=== PATIENT | female | born 1945 | race Caucasian/White ===

== ENCOUNTER 2017-06-03 08:00 | Outpatient (CLI) | payer MEDICARE, OTHER | END 2017-06-03 08:01 | disposition home or self-care (01) | LOC: BICMRI 08:00 | PROVIDERS: ATTEND Orthopaedic Surgery Hand Surgery | DX: M25.512 Pain in left shoulder (principal); M67.80 Other specified disorders of synovium and tendon, unspecified site; T14.8XXA Other injury of unspecified body region, initial encounter; S43.439A Superior glenoid labrum lesion of unspecified shoulder, initial encounter ==

== ENCOUNTER 2017-06-28 10:39 | Outpatient (CLI) | payer MEDICARE ==
[2017-06-28 11:24] LABS: Hemoglobin 15.6 g/dL (12.0-16.0); Mean Corpuscular HGB CONC 33.2 g/dL (32.0-36.0); Mean Corpuscular Hemoglobin 29.6 pg (27.0-31.0); Mean Corpuscular Volume 89.1 fl (81.0-99.0); Mean Platelet Volume 7.4 fL (7.4-10.4); Platelet Count 254 thou/uL (130-400); RBC Distribution Width 11.9 % (11.5-14.5); Red Blood Cell (RBC) Count 5.26 mill/uL (4.20-5.40); White Blood Cell (WBC) Count 6.7 thou/uL (4.8-10.8)
[2017-06-28 11:43] LABS: Anion Gap 14 mmol/L (10-20); BUN (Urea Nitrogen) 13 mg/dL (9.8-20.1); Calc. Creatinine Clearance 0 mL/min (70-130); Calcium 9.4 mg/dL (7.8-10.44); Carbon Dioxide 26 mmol/L (23-31); Chloride 103 mmol/L (98-107); Estimated GFR-MDRD 48; Glucose 106 mg/dL (83-110); Potassium 4.2 mmol/L (3.5-5.1); Sodium 139 mmol/L (136-145)
== END 2017-06-28 10:40 | disposition home or self-care (01) ==
LOC: LABBT 10:39
PROVIDERS: ATTEND Orthopaedic Surgery
DX: Z01.812 Encounter for preprocedural laboratory examination (principal); M75.102 Unspecified rotator cuff tear or rupture of left shoulder, not specified as traumatic
CPT/HCPCS: 80048; 85027

== ENCOUNTER → 2017-06-30 | Day surgery (SDC) | payer MEDICARE, OTHER ==
[2017-06-28 11:01] VITALS: BMI 44.0
[~2017-06-30] MED LIST: CEFAZOLIN/Water 2 GM/20 ML SYRINGE ONE; Fentanyl 100 MCG/2 ML VIAL ONE; Midazolam HCl 2 mg/2 ml Vial ONE; Ropivacaine 0.2% HCl/PF (40 MG/20 ML VIAL) ONE; Ropivacaine 0.5% HCl/PF (150 MG/30 ML VIAL) ONE
[2017-06-30 06:27] LABS: Bilirubin Negative (Negative); Blood, Urine Negative (Negative); Clarity CLEAR (Clear); Glucose, Urine (Dipstick) Negative (Negative); Leukocyte Negative (Negative); Nitrite Negative (Negative); Protein, Urine (Dipstick) Negative (Neg-Trace); Specific Gravity, Urine 1.016 (1.002-1.036); Urobilinogen 0.2 mg/dL (0.2-1.0)
--- NOTE | 2017-06-30 17:05 | CON ---
DATE OF CONSULTATION: 06/30/2017 HISTORY OF PRESENT ILLNESS: Mrs. Willson is a pleasant 71-year-old female, who was brought to outpatient surgery for subscapularis repair. The patient was taken back to the operating room and was given propofol and began a generalized induction for endotracheal intubation. The patient went from sinus rhythm to atrial fibrillation and atrial flutter. She has a known history of a paroxysmal atrial fibrillation and was cleared for surgery by Cardiology. Anesthesia with Dr. Robles the attending felt that the patient had concern for continuation of general induction. Given the cardiac rhythm changes, we would like further evaluation by Cardiology given the nature of procedure. We elected to not proceed with the patient's complete general induction. The patient was woken up and has had EKG changes that were taken showing her different rhythm strips. The patient will need to follow up with me as an outpatient. Dr. Dodson will evaluate the patient in the PACU and discussed with the family and patient should need an outpatient follow up with possible ablation versus pacing. They will follow up with me as an outpatient. Also, she has got a block with her sling in place. The patient will be given some tramadol for pain relief. AUUTMN
--- NOTE | 2017-06-30 18:34 | CON ---
DATE OF CONSULTATION: 06/30/2017 REASON FOR CONSULTATION: Atrial fibrillation. PRIMARY CERTIFIED FIRST ASSISTANT: Miguel Moreno M.D. HISTORY OF PRESENT ILLNESS: Mrs. Willson is a very pleasant 71-year-old white female, who comes to the hospital for a planned left open subscapularis repair. She has a rotator cuff injury that needs repa ir. She had her block placed on her shoulder and was getting induced by Anesthesia and she went from sinus rhythm to rapid atrial fibrillation, heart rate in the 140s, then she converted back to sinus, and then she went back into atrial flutter with 2:1 block, heart rate in the 150s and then she came back to sinus rhythm. Secondary to this, the procedure was aborted. She had only receives a few dos es of propofol at that time, so she was taken back to the PACU and Cardiology was consulted for furth er evaluation. She tells me that she has been dealing with this shoulder since March of last year and is at the point where she needs a repair as she cannot even sleep due to the pain. She has a hi story of paroxysmal atrial fibrillation. She is chronically on Eliquis and Multaq. She stopped Eliq uis 3 days before surgery, which was appropriate. She did continue the Multaq, her last dose was the night before the procedure. She otherwise currently denies any chest pain, tightness, or pressure. No shortness of breath. She cannot do much because of her shoulder injury. Currently, she remains in sinus rhythm. PAST MEDICAL HISTORY: 1. Hypothyroidism. 2. Hyperlipidemia. 3. Paroxysmal atrial fibrillation. OUTPATIENT MEDICATIONS: Include: 1. Magnesium. 2. Potassium. 3. Vitamin B12. 4. Glucosamine/chondroitin. 5. Multivitamin daily. 6. Turmeric root extract. 7. Levothyroxine 100 mcg a day. 8. Multaq 400 mg b.i.d. 9. Eliquis 5 mg b.i.d. ALLERGIES: No known drug allergies. SOCIAL HISTORY: No alcohol, tobacco or drugs. FAMILY HISTORY: Noncontributory. REVIEW OF SYSTEMS: A 12-point review of systems was done and is all negative unless stated in the hi story of present illness. PHYSICAL EXAMINATION: VITAL SIGNS: Temperature 97.2, pulse 60, respiratory rate 18, satting 98% on room air. GENERAL: Awake, alert, oriented x3, in no distress. HEENT: Normocephalic and atraumatic. NECK: Supple. LUNGS: Clear. CARDIOVASCULAR: S1, S2, no S3, S4, no murmurs, no rubs. ABDOMEN: Soft, positive bowel sounds. EXTREMITIES: No edema. SKIN: Warm and dry. LABORATORY WORK: Reviewed. On 06/28/2017, her creatinine was 1.12 with a GFR of 72. Sodium of 139, potassium of 4.2, chloride o f 103, carbon dioxide of 26, anion gap of 14, BUN of 13, and calcium of 9.4. CBC on the showed hemoglobin of 15.6 with normal white count, platelet count of 254. EKGs were reviewed. Several EKGs in the OR showed episode of atrial fibrillation with RVR and then s inus rhythm and then atrial flutter, it looks like typical atrial flutter with variable block, heart rate in the 140s to 150s and then sinus rhythm again, currently on telemetry in sinus rhythm. ASSESSMENT AND PLAN: Paroxysmal atrial fibrillation/atrial flutter: Certainly, unlikely that dillon g a dose of Multaq will make her go into atrial fibrillation or atrial flutter and this could just be her paroxysms of atrial fibrillation. It could also just be the stress related to the surgery; jake vázquez, she has not had a stress in several years, last one was I think in 2011. We will plan on doing an outpatient stress test and if this is unremarkable which I expected to be, we will most likely sug gest she may undergo surgery. Otherwise, at this time, she may be discharged home. We will have my office call her to set these procedures for her. I spoke with Dr. Moreno about the situation and he is in agreement. He will follow up with these connie ts.
--- NOTE | 2017-08-29 21:45 | EKG ---
Test Reason : Blood Pressure : / mmHG Vent. 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 rate has increased BY 46 BPM Confirmed by JENNIFER ALLEN M.D. ([id number]) on 08/29/2017 9:45:11 PM Referred By: YAYA Confirmed By:JENNIFER ALLEN M.D.
--- NOTE | 2017-08-29 21:45 | EKG ---
Test Reason : Blood Pressure : / mmHG Vent. 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 ([id number]) on 08/29/2017 9:44:35 PM Referred By: YAYA Confirmed By:JENNIFER ALLEN M.D.
--- NOTE | 2017-08-29 21:45 | EKG ---
Test Reason : Blood Pressure : / mmHG Vent. 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 rate has decreased BY 36 BPM Confirmed by JENNIFER ALLEN M.D. ([id number]) on 08/29/2017 9:44:51 PM Referred By: YAYA Confirmed By:JENNIFER ALLEN M.D.
--- NOTE | 2017-08-29 21:46 | EKG ---
Test Reason : Blood Pressure : / mmHG Vent. 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 ([id number]) on 08/29/2017 9:45:29 PM Referred By: YAYA Confirmed By:JENNIFER ALLEN M.D.
== END ==
LOC: SDC 05:45
PROVIDERS: ATTEND Orthopaedic Surgery
PROC: 0LQ20ZZ Repair Left Shoulder Tendon, Open Approach (ICD-10-PCS; principal; 2017-06-30)
DX: M75.122 Complete rotator cuff tear or rupture of left shoulder, not specified as traumatic (principal); E78.5 Hyperlipidemia, unspecified; E78.00 Pure hypercholesterolemia, unspecified; I48.0 Paroxysmal atrial fibrillation; E03.9 Hypothyroidism, unspecified; I48.92 Unspecified atrial flutter; Z79.01 Long term (current) use of anticoagulants; Z79.899 Other long term (current) drug therapy; Z88.5 Allergy status to narcotic agent; Z82.49 Family history of ischemic heart disease and other diseases of the circulatory system; Z96.651 Presence of right artificial knee joint; Z96.1 Presence of intraocular lens; Z90.49 Acquired absence of other specified parts of digestive tract; Z90.711 Acquired absence of uterus with remaining cervical stump; Z98.890 Other specified postprocedural states; Z53.09 Procedure and treatment not carried out because of other contraindication
CPT/HCPCS: 81003; 93005; 93010; J2250; J2795; J3010

== ENCOUNTER 2017-07-21 07:30 | Day surgery (SDC) | payer MEDICARE, OTHER ==
[2017-07-20 12:06] VITALS: BMI 44.0
[2017-07-21 07:59] LABS: #Basophils 0.1 thou/uL (0.0-0.2); #Eosinphils 0.2 thou/uL (0.0-0.7); #Lymphocytes 3.2 thou/uL (1.20-3.40); #Monocytes 0.8 thou/uL (0.11-0.59); #Neutrophils 5.5 thou/uL (1.40-6.50); %Basophils 1.3 % (0.0-1.0); %Eosinophils 2.4 % (0.0-10.0); %Lymphocytes 32.4 % (21.0-51.0); %Monocytes 8.3 % (0.0-10.0); %Neutrophils 55.6 % (42.0-75.0); Hemoglobin 14.2 g/dL (12.0-16.0); Mean Corpuscular HGB CONC 33.2 g/dL (32.0-36.0); Mean Corpuscular Hemoglobin 29.2 pg (27.0-31.0); Mean Platelet Volume 7.2 fL (7.4-10.4); Platelet Count 271 thou/uL (130-400); Red Blood Cell (RBC) Count 4.87 mill/uL (4.20-5.40); White Blood Cell (WBC) Count 9.9 thou/uL (4.8-10.8)
[2017-07-21 08:20] LABS: Anion Gap 11 mmol/L (10-20); BUN (Urea Nitrogen) 15 mg/dL (9.8-20.1); Calc. Creatinine Clearance 94 mL/min (70-130); Calcium 9.3 mg/dL (7.8-10.44); Carbon Dioxide 25 mmol/L (23-31); Chloride 110 mmol/L (98-107); Estimated GFR-MDRD 62; Glucose 101 mg/dL (83-110); Sodium 142 mmol/L (136-145)
[2017-07-21] MEDS ORDERED: Fentanyl 100 MCG/2 ML VIAL ONE (08:37)
[2017-07-21] MEDS ORDERED: Midazolam HCl 2 mg/2 ml Vial ONE (08:37)
[2017-07-21] MEDS ORDERED: Ropivacaine 0.2% 550 ML 550 ML NERVE BLCK SCH (08:48)
[2017-07-21] MEDS ORDERED: traMADol HCl 50 MG TAB PO PRN ×2 (08:48)
[2017-07-21] MEDS ORDERED: Ketorolac Tromethamine 30 MG/ML VIAL IVP PRN (08:48)
[2017-07-21] MEDS ORDERED: Zolpidem Tartrate 5 MG TAB PO PRN (08:48)
[2017-07-21] MEDS ORDERED: HYDROcodone/Acetaminophen 10/325 mg Tablet PO PRN ×2 (08:48)
[2017-07-21] MEDS ORDERED: Ondansetron HCl/PF 4 MG/2 ML Vial IVP PRN (08:48)
[2017-07-21] MEDS ORDERED: Promethazine HCl 25 MG/ML VIAL IM PRN (08:48)
[2017-07-21] MEDS ORDERED: Fentanyl 100 MCG/2 ML VIAL IV PRN (08:49)
[2017-07-21] MEDS ORDERED: CEFAZOLIN/Water 2 GM/20 ML SYRINGE ONE (09:41)
--- NOTE | 2017-07-21 09:44 | HP ---
HISTORY OF PRESENT ILLNESS: Ms. Willson is a pleasant 71-year-old female who had an attempt earlier thi s month to go into the OR on 06/30/2017. The patient went into of atrial fibrillation and atrial flu tter. The patient was not intubated and the surgery was stopped. She was in the OR for a left rotat or cuff repair. The patient was seen by Cardiology and cleared before returning. The patient's hist ory is she fell in March, has had pain in her right shoulder since that time. The pain is severe. She has sharp pain it can reach 7/10, constant. The patient desired surgery. She has received her medical clearance per Dr. Miguel Moreno. PAST MEDICAL HISTORY: Hypothyroidism, hyperlipidemia, paroxysmal atrial fibrillation. PAST SURGICAL HISTORY: Includes carpal tunnel, gallbladder, hysterectomy, right knee arthroscopy and total knee replacement, eye lift. CURRENT MEDICATIONS: Patient has a medication list of magnesium, potassium, vitamin B, glucosamine, multivitamin, turmeric, levothyroxine, Multaq and Eliquis. ALLERGIES: CODEINE causes her a stomachache. SOCIAL HISTORY: No tobacco, alcohol or drug use. Currently retired. is with her. FAMILY HISTORY: Noncontributory. PHYSICAL EXAMINATION: GENERAL: Alert and oriented female in no acute distress. The patient has unlabored breathing, resti ng comfortably in bed. HEART: Regular rate and rhythm. ABDOMEN: Soft, nontender, obese. EXTREMITIES: The patient's left upper extremity, she shows external rotation with 40 degrees active , forward flexion 90 degrees. The patient has a weak subscapularis. Neurovascularly intact distally . Pain with Gil and Gibson's test, 2+ radial pulse. LABORATORY AND X-RAY FINDINGS: MRI showed a full thickness subscapularis tear with retraction and so me cystic changes in the humeral head, subluxation of biceps and tendinopathy within the biceps. IMPRESSION: Left subscapularis tear with biceps tendonopathy. ASSESSMENT AND PLAN: The patient has been cleared by Cardiology for undergoing an anesthetic. The p atient will be taken back to the operating room for an open subscapularis repair with biceps tenodesi s and any indicated procedures. She understood the risks and benefits of surgery, pain, scar, bleedi ng, infection, damage to vital structures, decreased range or strength. She understands all these ri sks and benefits and elected to proceed. The patient will be taken back after completion of her inte rscalene block.
--- NOTE | 2017-07-21 15:46 | OP ---
PREOPERATIVE DIAGNOSES: 1. Right subscapularis tear, high grade with a 2 cm retraction. 2. Biceps tendonopathy. POSTOPERATIVE DIAGNOSES: 1. Right subscapularis tear, high grade with a 2 cm retraction. 2. Biceps tendonopathy. PROCEDURE PERFORMED: 1. Right open subscapularis repair. 2. Biceps tenodesis, open. STAFF: Jayden Brush M.D. ANIMAL HUSBANDRY TEACHER: Kenzie Razo. ANESTHESIOLOGIST: Jericho Wadsworth M.D. ANESTHESIA: The patient received a general endotracheal intubation with interscalene block. ESTIMATED BLOOD LOSS: 75 mL TOURNIQUET TIME: None. ANTIBIOTICS: Ancef 2 grams. IMPLANTS: Arthrex 5.5 corkscrews x2, 4.75 SwiveLocks x2. COMPLICATIONS: None. HISTORY OF PRESENT ILLNESS: The patient is a 71-year-old female who was rescheduled this month after problems with her some heart changes. The patient had a fall over giving. She is right hand dominant. 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 The patient continued to have pain in her left shoulde r. The patient has a full-thickness subscapularis tear with the inferior fibers intact. I discussed with the patient the risks and benefits of arthroscopic and open subscapularis repair to include new n, scar, bleeding, infection, failure of repair, damage to vital structures, stiffness, need for furt her surgeries to include a shoulder replacement, damage to nerves, deep nerves, arteries, tendon, los s of life or limb. The patient understood these risks and benefits and elected to proceed. PROCEDURE NOTE: Time-out was performed designating the patient's left upper extremity as the operati ve site based on sight, consents, marking. After completion of timeout, the patient's left upper ext remity was prepped and draped in sterile fashion. An anterior deltopectoral incision was made down t o the biceps. We found what appeared to be the interval and what seen to be a clean muscular interva l just at the conjoint, which was developed. We found the patient's conjoint as well as the patient' s subscapularis, first there was some bursa overlying it, so it was difficult to excise, we could see the retraction. I used a curette and cleaned up and created a bleeding footprint on the humerus for attachment. I cut the patient's biceps and tagged it. I then placed an anchor a little more medial ized within the footprint down to bone for a 5.5 corkscrew. I placed the sutures through a portion o f the supraspinatus, portion of the rotator interval and moving down to the superior aspect of the escalona bscapularis for 4 passes and placed a second anchor more inferiorly and passed off the subscapularis. I then sewed those from inferior to superior. I used a #1 Vicryl and closed a subtle interval betw een the inferior torn fibers and the more superior fibers in a horizontal mattress stitch and placed one more free stitch as a double row inferior to the the tendon. I then passed and opened up t he biceps groove and passed two 4.75 SwiveLocks and did a double row repair with all the sutures to r eapproximate the tendon down to what was left the remnant footprint. I then took suture limbs from e ach of the 4.7 SwiveLocks and tied this at the site of the biceps down and used [id number] passe d it through remnant aspect of the tunnel into the cuff to sew it down into place and tied it cut, wa shed, closed with 0, 2-0, and owen. The patient will begin range of motion. The patient will follow up as an outpatient in 2 weeks.
[2017-07-21] MEDS ORDERED: Ropivacaine 0.5% HCl/PF (150 MG/30 ML VIAL) ONE (16:35)
[2017-07-21] MEDS ORDERED: Ropivacaine 0.2% HCl/PF (40 MG/20 ML VIAL) ONE (16:35)
[2017-07-21] MEDS ORDERED: Dexamethasone 20 MG/5 ML VIAL ONE (17:21)
[2017-07-21] MEDS ORDERED: PHENYLEPHRINE-NS 100 MCG/ML 10 ML SYRINGE ONE (17:21)
[2017-07-21] MEDS ORDERED: Lidocaine 1% PF 5 ML VIAL ONE (17:21)
[2017-07-21] MEDS ORDERED: Ketorolac Tromethamine 30 MG/ML VIAL ONE (17:21)
[2017-07-21] MEDS ORDERED: Glycopyrrolate 0.2 MG/ML 5 ML SYRINGE ONE (17:21)
[2017-07-21] MEDS ORDERED: Metoprolol Tartrate 5 MG/5 ML VIAL ONE (17:21)
[2017-07-21] MEDS ORDERED: Ondansetron HCl/PF 4 MG/2 ML Vial ONE (17:21)
[2017-07-21] MEDS ORDERED: Propofol 200 MG/20 ML VIAL ONE (17:21)
== END 2017-07-21 14:14 | disposition home or self-care (01) ==
LOC: SDC 07:30
PROVIDERS: ATTEND Orthopaedic Surgery
PROC: 0LQ20ZZ Repair Left Shoulder Tendon, Open Approach (ICD-10-PCS; principal; 2017-07-21)
PROC: 0LS40ZZ Reposition Left Upper Arm Tendon, Open Approach (ICD-10-PCS; 2017-07-21)
PROC: 0RHK04Z Insertion of Internal Fixation Device into Left Shoulder Joint, Open Approach (ICD-10-PCS; 2017-07-21)
DX: M75.102 Unspecified rotator cuff tear or rupture of left shoulder, not specified as traumatic (principal); M75.22 Bicipital tendinitis, left shoulder; I48.92 Unspecified atrial flutter; I48.0 Paroxysmal atrial fibrillation; E03.9 Hypothyroidism, unspecified; E78.5 Hyperlipidemia, unspecified; E78.00 Pure hypercholesterolemia, unspecified; Z79.01 Long term (current) use of anticoagulants; Z79.899 Other long term (current) drug therapy; Z88.5 Allergy status to narcotic agent; Z96.651 Presence of right artificial knee joint; Z96.1 Presence of intraocular lens; Z90.49 Acquired absence of other specified parts of digestive tract; Z90.710 Acquired absence of both cervix and uterus; Z98.890 Other specified postprocedural states
CPT/HCPCS: 23410; 23430; 80048; 85025; A4306; 36415; C1713; J1100; J1885; J2001; J2250; J2405; J2704; J2795; J3010

== ENCOUNTER 2017-10-21 10:23 | Inpatient (IN) | payer MEDICARE, OTHER ==
[2017-10-21] MEDS ORDERED: Vancomycin HCl 1.5 GM in Sodium Chloride 0.9% 250 ML 300 ML IVPB SCH (11:45)
[2017-10-21 11:50] LABS: #Eosinphils 0.1 thou/uL (0.0-0.7); #Lymphocytes 2.3 thou/uL (1.20-3.40); #Monocytes 1.1 thou/uL (0.11-0.59); #Neutrophils 13.2 thou/uL (1.40-6.50); %Basophils 0.3 % (0.0-1.0); %Eosinophils 0.3 % (0.0-10.0); %Lymphocytes 13.6 % (21.0-51.0); %Monocytes 6.6 % (0.0-10.0); %Neutrophils 79.2 % (42.0-75.0); Hemoglobin 13.8 g/dL (12.0-16.0); Mean Corpuscular Volume 87.8 fl (81.0-99.0); Mean Platelet Volume 7.3 fL (7.4-10.4); Platelet Count 232 thou/uL (130-400); RBC Distribution Width 11.5 % (11.5-14.5); Red Blood Cell (RBC) Count 4.78 mill/uL (4.20-5.40); White Blood Cell (WBC) Count 16.6 thou/uL (4.8-10.8)
[2017-10-21] MEDS ORDERED: cefTRIAXone\\ROCEPHIN 2 GM VIAL ONE (11:51)
[2017-10-21 12:18] LABS: ALT (SGPT) 14 U/L (8-55); AST (SGOT) 16 U/L (5-34); Albumin 3.8 g/dL (3.4-4.8); Alkaline Phosphatase 109 U/L (40-150); Anion Gap 12 mmol/L (10-20); BUN (Urea Nitrogen) 10 mg/dL (9.8-20.1); Bilirubin, Total 0.8 mg/dL (0.2-1.2); Calc. Creatinine Clearance 0 mL/min (70-130); Calcium 9.4 mg/dL (7.8-10.44); Carbon Dioxide 23 mmol/L (23-31); Estimated GFR-MDRD 65; Globulin 2.9 g/dL (2.4-3.5); Glucose 115 mg/dL (83-110); Potassium 3.6 mmol/L (3.5-5.1); Protein, Total 6.7 g/dL (6.0-8.3); Sodium 137 mmol/L (136-145)
[2017-10-21 12:28] LABS: Chloride 105 mmol/L (98-107)
[2017-10-21] MEDS ORDERED: Morphine 4 MG/ML VIAL ONE (12:59)
[2017-10-21] MEDS ORDERED: Ondansetron HCl/PF 4 MG/2 ML Vial IVP PRN ×2 (14:11→17:32)
[2017-10-21] MEDS ORDERED: Ondansetron ODT 4 MG TAB SL PRN (14:11)
[2017-10-21] MEDS ORDERED: Acetaminophen 325 MG TAB PO PRN (14:11)
[2017-10-21] MEDS ORDERED: Mag-Al 1200 mg/1200 mg/30 ML UDCUP PO PRN (17:32)
[2017-10-21] MEDS ORDERED: Ondansetron ODT 4 MG TAB PO PRN (17:32)
[2017-10-21] MEDS ORDERED: hydrALAZINE 20 MG/ML VIAL SLOW IVP PRN (17:32)
[2017-10-21] MEDS: Sodium Chloride 0.9% 1,000 ML IV SCH (18:32)
[2017-10-21] MEDS: Dronedarone HCl 400 MG TAB PO SCH (19:22)
[2017-10-21] MEDS: Apixaban 5 MG TAB PO SCH (19:23)
[2017-10-21] MEDS: Docusate 100 MG CAP PO SCH (19:23)
[2017-10-21] MEDS: traMADol HCl 50 MG TAB PO PRN (19:50)
[2017-10-21] MEDS ORDERED: Vancomycin HCl 1 GM in Premix Bag 1 BAG IVPB SCH (21:00)
--- NOTE | 2017-10-21 21:01 | HP ---
PRIMARY CARE PHYSICIAN: Dr. Carolina Arita. CHIEF COMPLAINT: Pain and swelling in the left thigh. HISTORY OF PRESENT ILLNESS: Ms. Willson is a very pleasant 72-year-old female that has a history of atr ial fibrillation as well as hypothyroidism. She was in her usual state of health until about a week ago when she notices some increased pain and redness in her thigh. She said it started off like a li ttle spot on her leg. She does not remember having any type of trauma, but then got progressively wo rse. She tried using a warm compress on it to try to make it come to ahead, but it did not. Then, s he tried to drain it herself by kind of scraping and pitting a little puncture wound there, but it di d not help. She had some chills, but no fever. She was concerned about the increasing redness and f or this reason she came to the emergency room for evaluation. In the ER, she was noted to have signi ficant redness and swelling of the left thigh as well as an elevated white blood cell count and low g rade temperature and for this reason she is being admitted for cellulitis of the thigh. REVIEW OF SYSTEMS: Constitutional: She has had subjective fever as well as some chills, but no nigh t sweats, no weight loss. HEENT: No headaches, no dizziness, no visual changes, no sore throat, rhi norrhea, neck pain, no adenopathy. Pulmonary: No hemoptysis, no cough, no wheezing. Cardiovascular : She denies any chest pain, no shortness of breath, no PND, no orthopnea. Gastrointestinal: No ab dominal pain, no nausea, no vomiting, no change in bowels. Genitourinary: No urinary frequency, hem aturia, no hesitancy. Neurologic: No focal weakness, numbness, no seizures. Psychiatric: No sympt oms of anxiety or depression. Skin and Integument: Is as the history of present illness. PAST MEDICAL HISTORY: Significant for atrial fibrillation, obstructive sleep apnea, and hypothyroidi sm. PAST SURGICAL HISTORY: She has had a left shoulder surgery, right total knee replacement, cataract s urgery, cholecystectomy, x3. ALLERGIES: CODEINE. FAMILY HISTORY: Significant for heart disease in her father. 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 She is . She is a nonsmoker, nondrinker. MEDICATIONS: Include levothyroxine 100 mcg daily, multivitamin once a day, Multaq 400 mg twice a day , vitamin D3 of 1000 units daily, turmeric 500 mg daily, potassium gluconate a day, Glucosamine chondroitin 1 tablet daily and Eliquis 5 mg twice a day and magnesium oxide daily. PHYSICAL EXAMINATION: GENERAL: She is alert and oriented. She appears to be in no acute distress. VITAL SIGNS: Blood pressure was 113/55, heart rate ranging from 69-144, respiratory rate of 22, temp erature is 98, O2 sat is 95% on room air. HEENT: Pupils are equal, round, and reactive. Extraocular muscles are intact. Her sclerae are anic teric. Throat no erythema, no exudates. NECK: No adenopathy, no bruits. LUNGS: Clear to auscultation. There is no wheezing, no rales. CARDIOVASCULAR: She had a normal S1, S2. I did not appreciate an S3 or S4. No murmurs, clicks or r ubs. Heart rate was slightly tachycardic. ABDOMEN: Soft, it is nontender, nondistended. Positive for bowel sounds. No rebound or guarding. EXTREMITIES: She has got erythema of the left lower extremity encompassing almost the entire medial thigh. It is angry and red in color. There is a central darker purplish area of denuded skin. She has got palpable dorsalis pedis and posterior tibial pulses bilaterally and good capillary refill. NEUROLOGICALLY: The exam is nonfocal. LABORATORY: White blood cell count 16.6, hemoglobin 13.8, hematocrit is 42.0, platelet count was 232 . Sodium is 137, potassium 3.6, chloride is 105, CO2 is 23, BUN of 10, creatinine 0.86, glucose is 1 15, lactic acid is 1.4. ASSESSMENT AND PLAN: 1. Ms. Willson is a very pleasant 72-year-old female that presents with cellulitis of the lower extremi ty. She will be admitted and started on IV antibiotics to cover for Staph and strep and also vancomy tsering for potential MRSA. Dr. Zuniga had performed a bedside ultrasound in the emergency room in which t here was no evidence of any abscess. Therefore, we will hold off on any type of surgical consultatio n at this point and reassess the area daily. Blood cultures have been done in the emergency room and we will follow up with a repeat CBC tomorrow. 2. For atrial fibrillation, continue Multaq as well as Eliquis and monitor her heart rate. 3. For hypothyroidism, we will continue her usual Synthroid dose and she appears to be clinically eu thyroid. 4. For tachycardia, this likely represents an early septic picture, especially with the elevated i te blood cell count and we will put her on fluid resuscitation in addition to the antibiotics for thi s.
[2017-10-21] MEDS: Acetaminophen 325 MG TAB PO PRN (23:05)
[2017-10-22] MEDS: Sodium Chloride 0.9% 1,000 ML IV SCH ×3 (02:02→21:26)
[2017-10-22 04:17] LABS: #Eosinphils 0.2 thou/uL (0.0-0.7); #Lymphocytes 1.8 thou/uL (1.20-3.40); #Monocytes 0.9 thou/uL (0.11-0.59); #Neutrophils 9.2 thou/uL (1.40-6.50); %Basophils 0.2 % (0.0-1.0); %Eosinophils 1.7 % (0.0-10.0); %Lymphocytes 14.9 % (21.0-51.0); %Monocytes 7.4 % (0.0-10.0); %Neutrophils 75.8 % (42.0-75.0); Hemoglobin 12.2 g/dL (12.0-16.0); Mean Corpuscular HGB CONC 33.6 g/dL (32.0-36.0); Mean Corpuscular Hemoglobin 29.4 pg (27.0-31.0); Mean Corpuscular Volume 87.6 fl (81.0-99.0); Platelet Count 196 thou/uL (130-400); RBC Distribution Width 11.4 % (11.5-14.5); Red Blood Cell (RBC) Count 4.16 mill/uL (4.20-5.40); White Blood Cell (WBC) Count 12.1 thou/uL (4.8-10.8)
[2017-10-22 04:39] LABS: Anion Gap 8 mmol/L (10-20); BUN (Urea Nitrogen) 10 mg/dL (9.8-20.1); Calc. Creatinine Clearance 110 mL/min (70-130); Calcium 8.4 mg/dL (7.8-10.44); Carbon Dioxide 26 mmol/L (23-31); Chloride 108 mmol/L (98-107); Estimated GFR-MDRD 76; Glucose 114 mg/dL (83-110); Potassium 3.4 mmol/L (3.5-5.1); Sodium 139 mmol/L (136-145)
[2017-10-22] MEDS: Levothyroxine Sodium 100 MCG TAB PO SCH (05:47)
[2017-10-22] MEDS: traMADol HCl 50 MG TAB PO PRN ×2 (05:47→14:22)
[2017-10-22] MEDS: Docusate 100 MG CAP PO SCH ×2 (08:53→21:27)
[2017-10-22] MEDS: Apixaban 5 MG TAB PO SCH ×2 (08:54→21:27)
[2017-10-22] MEDS: Dronedarone HCl 400 MG TAB PO SCH ×2 (08:54→21:27)
--- NOTE | 2017-10-22 10:16 | PDOC.PN ---
- Subjective Encounter Start Date: 10/22/17 Encounter Start Time: 10:10 Subjective: f/u LLE cellulitis on Rocephin and Vancomycin. Still with large area of -: redness and swelling but small improvement. No fever or chills. Nsg -: noted A-fib RVR with chronic A-fib hx on anticoagulation. - Objective Resuscitation Status: Resuscitation Status FULL:Full Resuscitation MAR Reviewed: Yes Vital Signs & Weight: Vital Signs (12 hours) Temp Pulse Resp BP BP Pulse Ox 10/22/17 09:00 98.6 F 112 H 20 10/22/17 07:38 98.6 F 112 H 20 112/53 L 92 L 10/22/17 04:57 98 10/22/17 04:08 98.5 F 120 H 18 102/64 94 L 10/22/17 03:10 88 10/22/17 01:53 99 10/22/17 01:10 99.0 F 104 H 16 121/54 L 93 L 10/21/17 23:05 101.1 F H 125 H 18 119/53 L 94 L Weight Weight 237 lb I&O: 10/21/17 10/22/17 10/23/17 06:59 06:59 06:59 Intake Total 2384 240 Output Total 1400 Balance 984 240 Result Diagrams: 10/22/17 04:08 10/22/17 04:08 Additional Labs: Microbiology 10/21/17 11:41 Venous blood - Right Hand Blood Culture - Preliminary Specimen has been received and culture in progress. No Growth to date. 10/21/17 11:41 Venous blood - Left Arm Blood Culture - Preliminary Specimen has been received and culture in progress. No Growth to date. Laboratory Tests 10/21/17 10/21/17 10/22/17 11:41 11:41 04:08 WBC 16.6 H Neutrophils % 79.2 H 75.8 H Potassium 3.6 EKG Reviewed by me: Yes (Tele - A-fib in low 100's) Phys Exam - Physical Examination Constitutional: NAD HEENT: PERRLA, moist MMs, sclera anicteric, oral pharynx no lesions Neck: no nodes, no JVD, supple, full ROM Respiratory: no wheezing, no rales, no rhonchi, clear to auscultation bilateral tachycardic S1, S2 Cardiovascular: no significant murmur, no rub, gallop, irregular Gastrointestinal: soft, non-tender, no distention, positive bowel sounds Musculoskeletal: pulses present, edema present Neurological: non-focal, normal sensation, moves all 4 limbs Psychiatric: normal affect, A&O x 3 Deviation from normal: Large area of erythema, edema and TTP of medial thigh LLE with central ulcer, pink margins inside demarcation line Skin: normal turgor, cap refill <2 seconds Dx/Plan (1) Cellulitis of left lower extremity Code(s): L03.116 - CELLULITIS OF LEFT LOWER LIMB Status: Acute Comment: Mild improvement in margins, change Rocephin 2gm IV daily, continue Vancomycin 1.5gm IV daily, continue serial monitoring (2) Atrial fibrillation with RVR Code(s): I48.91 - UNSPECIFIED ATRIAL FIBRILLATION Status: Acute Comment: Chronic A-fib with current RVR, continue IVF's, continue Multaq (3) Chronic anticoagulation Code(s): Z79.01 - HOSE CEMENTER (CURRENT) USE OF ANTICOAGULANTS Status: Chronic Comment: Continue Eliquis 5mg BID (4) Hypokalemia Code(s): E87.6 - HYPOKALEMIA Status: Acute Comment: KCL 40meq BID, repeat K + level in am (5) Hypothyroidism Code(s): E03.9 - HYPOTHYROIDISM, UNSPECIFIED Status: Chronic Comment: Continue Levothyroxine 100mcg daily - Plan continue antibiotics, out of bed/ambulate Stable currently -: Continue Rocephin and Vancomycin, likely will need IV abx another 48h -: Continue serial monitoring of LLE -: KCL 40meq po BID -: AM Lab: BMP, CBC * Convert to inpt status
[2017-10-22] MEDS: cefTRIAXone\\ROCEPHIN 2 GM in Sodium Chloride 0.9% 100 ML IVPB SCH (10:52)
[2017-10-22] MEDS: Acetaminophen 325 MG TAB PO PRN ×2 (10:53→17:04)
[2017-10-22] MEDS ORDERED: Potassium Chloride 20 MEQ TAB PO SCH (11:00)
[2017-10-22] MEDS ORDERED: cefTRIAXone\\ROCEPHIN 1 GM in Sodium Chloride 0.9% 100 ML IVPB SCH (12:00)
[2017-10-22] MEDS ORDERED: Vancomycin HCl 1.5 GM in Sodium Chloride 0.9% 250 ML 300 ML IVPB SCH (13:00)
[2017-10-22] MEDS: Potassium Chloride 20 MEQ TAB PO SCH (17:04)
[2017-10-23] MEDS: Acetaminophen 325 MG TAB PO PRN ×2 (05:43→11:36)
[2017-10-23] MEDS: Levothyroxine Sodium 100 MCG TAB PO SCH (05:43)
[2017-10-23] MEDS: Sodium Chloride 0.9% 1,000 ML IV SCH ×2 (05:43→11:29)
[2017-10-23 06:05] LABS: Anion Gap 11 mmol/L (10-20); BUN (Urea Nitrogen) 8 mg/dL (9.8-20.1); Calc. Creatinine Clearance 128 mL/min (70-130); Calcium 8.2 mg/dL (7.8-10.44); Carbon Dioxide 17 mmol/L (23-31); Chloride 113 mmol/L (98-107); Estimated GFR-MDRD 85; Glucose 95 mg/dL (83-110); Sodium 137 mmol/L (136-145)
[2017-10-23 06:09] LABS: Band 5 % (5-11); Eosinophils 3 % (0-10); Hemoglobin 11.4 g/dL (12.0-16.0); Lymphocytes 22 % (21-51); MDiff Complete? YES; Mean Corpuscular HGB CONC 31.9 g/dL (32.0-36.0); Mean Corpuscular Hemoglobin 28.5 pg (27.0-31.0); Mean Corpuscular Volume 89.4 fl (81.0-99.0); Monocytes 7 % (0-10); Neutrophil 63 % (42-75); Platelet Count 211 thou/uL (130-400); RBC Distribution Width 11.6 % (11.5-14.5)
[2017-10-23] MEDS: Dronedarone HCl 400 MG TAB PO SCH ×2 (09:43→20:53)
[2017-10-23] MEDS: Potassium Chloride 20 MEQ TAB PO SCH (09:43)
[2017-10-23] MEDS: Apixaban 5 MG TAB PO SCH ×2 (09:43→20:53)
[2017-10-23] MEDS: Docusate 100 MG CAP PO SCH ×2 (09:43→20:53)
[2017-10-23] MEDS: cefTRIAXone\\ROCEPHIN 2 GM in Sodium Chloride 0.9% 100 ML IVPB SCH (11:28)
[2017-10-23] MEDS: Vancomycin HCl 1.5 GM in Sodium Chloride 0.9% 250 ML 300 ML IVPB SCH (13:28)
--- NOTE | 2017-10-23 16:25 | PDOC.PN ---
- Subjective Encounter Start Date: 10/23/17 Encounter Start Time: 16:20 Subjective: f/u for LLE cellulitis on Vancomycin and Rocephin. Some leg pain but overal -: improved. No fever or chills. - Objective MAR Reviewed: Yes Vital Signs & Weight: Vital Signs (12 hours) Temp Pulse Resp BP Pulse Ox 10/23/17 12:30 98.4 F 76 16 145/65 H 96 10/23/17 09:30 98.4 F 76 16 93 L 10/23/17 07:36 97.5 F L 70 18 124/58 L 93 L Weight Weight 246 lb 1 oz I&O: 10/22/17 10/23/17 10/24/17 06:59 06:59 06:59 Intake Total 1600 Output Total 600 Balance 1000 Result Diagrams: 10/23/17 04:54 10/23/17 04:54 Additional Labs: Microbiology 10/21/17 11:41 Venous blood - Right Hand Blood Culture - Preliminary Specimen has been received and culture in progress. No Growth to date. 10/21/17 11:41 Venous blood - Left Arm Blood Culture - Preliminary Specimen has been received and culture in progress. No Growth to date. Laboratory Tests 10/21/17 10/21/17 10/22/17 11:41 11:41 04:08 WBC 16.6 H Neutrophils % 79.2 H 75.8 H Potassium 3.6 EKG Reviewed by me: Yes (Tele - SR in 60's) Phys Exam - Physical Examination Constitutional: NAD HEENT: PERRLA, moist MMs, sclera anicteric, oral pharynx no lesions Neck: no nodes, no JVD, supple Respiratory: no wheezing, no rales, no rhonchi, clear to auscultation bilateral S1, S2 Cardiovascular: RRR, no significant murmur, no rub, gallop Gastrointestinal: soft, non-tender, no distention, positive bowel sounds LLE with edema and erythema of medial thigh, decreased erythema central ecchymosis without purulent drainage Musculoskeletal: pulses present, edema present Neurological: normal sensation, moves all 4 limbs Psychiatric: normal affect, A&O x 3 Skin: normal turgor, cap refill <2 seconds Dx/Plan (1) Cellulitis of left lower extremity Code(s): L03.116 - CELLULITIS OF LEFT LOWER LIMB Status: Acute Comment: Mild improvement in margins, change Rocephin 2gm IV daily, continue Vancomycin 1.5gm IV daily, continue serial monitoring, likely will need IV abx another 48- 72h (2) Atrial fibrillation with RVR Code(s): I48.91 - UNSPECIFIED ATRIAL FIBRILLATION Status: Acute Comment: Current SR in 60's, Continue Multaq (3) Chronic anticoagulation Code(s): Z79.01 - SENIOR CARE (CURRENT) USE OF ANTICOAGULANTS Status: Chronic Comment: Continue Eliquis 5mg BID (4) Hypokalemia Code(s): E87.6 - HYPOKALEMIA Status: Acute Comment: change KCL 40meq daily, repeat K+ level in am (5) Hypothyroidism Code(s): E03.9 - HYPOTHYROIDISM, UNSPECIFIED Status: Chronic Comment: Continue Levothyroxine 100mcg daily - Plan plan discussed w/ family, continue antibiotics, out of bed/ambulate Stable currently -: Continue Rocephin and Vancomycin IV -: Saline lock IVF -: Local WCT -: Decrease KCL 40meq daily * AM lab: CBC, BMP
[2017-10-24] MEDS: traMADol HCl 50 MG TAB PO PRN ×2 (01:27→09:24)
[2017-10-24] MEDS: Vancomycin HCl 1.5 GM in Sodium Chloride 0.9% 250 ML 300 ML IVPB SCH ×2 (01:31→15:34)
[2017-10-24] MEDS ORDERED: Metoprolol Tartrate 5 MG/5 ML VIAL IVP SCH (04:00)
[2017-10-24 05:59] LABS: Band 1 % (5-11); Eosinophils 2 % (0-10); Hemoglobin 11.7 g/dL (12.0-16.0); Lymphocytes 26 % (21-51); MDiff Complete? YES; Mean Corpuscular HGB CONC 32.3 g/dL (32.0-36.0); Mean Corpuscular Hemoglobin 28.5 pg (27.0-31.0); Mean Corpuscular Volume 88.2 fl (81.0-99.0); Mean Platelet Volume 7.2 fL (7.4-10.4); Monocytes 5 % (0-10); Neutrophil 66 % (42-75); Platelet Count 287 thou/uL (130-400); RBC Distribution Width 11.6 % (11.5-14.5); Red Blood Cell (RBC) Count 4.11 mill/uL (4.20-5.40); White Blood Cell (WBC) Count 10.7 thou/uL (4.8-10.8)
[2017-10-24 06:00] LABS: Anion Gap 10 mmol/L (10-20); BUN (Urea Nitrogen) 7 mg/dL (9.8-20.1); Calc. Creatinine Clearance 117 mL/min (70-130); Calcium 8.8 mg/dL (7.8-10.44); Carbon Dioxide 22 mmol/L (23-31); Chloride 110 mmol/L (98-107); Estimated GFR-MDRD 76; Glucose 102 mg/dL (83-110); Potassium 3.6 mmol/L (3.5-5.1); Sodium 138 mmol/L (136-145)
[2017-10-24] MEDS: Levothyroxine Sodium 100 MCG TAB PO SCH (06:25)
[2017-10-24 09:20] VITALS: BMI 46.8
[2017-10-24] MEDS: Apixaban 5 MG TAB PO SCH (09:24)
[2017-10-24] MEDS: Dronedarone HCl 400 MG TAB PO SCH ×2 (09:25→21:00)
[2017-10-24] MEDS: Docusate 100 MG CAP PO SCH ×2 (09:25→21:01)
[2017-10-24] MEDS: Potassium Chloride 20 MEQ TAB PO SCH (09:25)
--- NOTE | 2017-10-24 11:34 | PDOC.PN ---
- Subjective Encounter Start Date: 10/24/17 Encounter Start Time: 11:20 Subjective: f/u for LLE cellulitis/abscess on Vancomycin and Rocephin. Pt noted -: purulent drainage and bleeding from central area of redness last pm and -: this am. - Objective MAR Reviewed: Yes Vital Signs & Weight: Vital Signs (12 hours) Temp Pulse Resp BP Pulse Ox 10/24/17 08:00 97.6 F 103 H 20 132/70 93 L 10/24/17 04:06 123 H 16 143/70 H 10/24/17 04:00 98.7 F 90 21 H 146/63 H 92 L 10/24/17 02:39 130 H 16 140/61 88 L Weight Admit Weight 233 lb 9.6 oz Weight 248 lb I&O: 10/23/17 10/24/17 10/25/17 06:59 06:59 06:59 Intake Total 1600 970 Output Total 600 800 Balance 1000 170 Result Diagrams: 10/24/17 04:49 10/24/17 04:49 Additional Labs: Microbiology 10/21/17 11:41 Venous blood - Right Hand Blood Culture - Preliminary Specimen has been received and culture in progress. No Growth to date. 10/21/17 11:41 Venous blood - Left Arm Blood Culture - Preliminary Specimen has been received and culture in progress. No Growth to date. Laboratory Tests 10/21/17 10/21/17 10/22/17 11:41 11:41 04:08 WBC 16.6 H Neutrophils % 79.2 H 75.8 H Potassium 3.6 EKG Reviewed by me: Yes (Tele - SR, paroxysmal A-fib RVR overnight) Phys Exam - Physical Examination Constitutional: NAD HEENT: PERRLA, moist MMs, sclera anicteric, oral pharynx no lesions Neck: no nodes, no JVD, supple, full ROM Respiratory: no wheezing, no rales, no rhonchi, clear to auscultation bilateral Cardiovascular: RRR, no significant murmur, no rub, gallop Gastrointestinal: soft, non-tender, no distention, positive bowel sounds LLE with decreased erythema, central purulent core with expressible discharge Musculoskeletal: pulses present, edema present Neurological: non-focal, normal sensation, moves all 4 limbs Psychiatric: normal affect, A&O x 3 Skin: normal turgor, cap refill <2 seconds Dx/Plan (1) Abscess of left lower extremity Code(s): L02.416 - CUTANEOUS ABSCESS OF LEFT LOWER LIMB Status: Acute Comment: Organized abscess with purulent drainage, consult Gen Surgery for I&D today, continue Vancomycin and Rocephin, WCT consult (2) Cellulitis of left lower extremity Code(s): L03.116 - CELLULITIS OF LEFT LOWER LIMB Status: Acute Comment: Mild improvement in margins, change Rocephin 2gm IV daily, continue Vancomycin 1.5gm IV daily, continue serial monitoring, likely will need IV abx another 48- 72h (3) Atrial fibrillation with RVR Code(s): I48.91 - UNSPECIFIED ATRIAL FIBRILLATION Status: Acute Comment: Current SR in 60's, Continue Multaq, intermittent RVR likely due to current infectious process (4) Chronic anticoagulation Code(s): Z79.01 - CLIPMAN (CURRENT) USE OF ANTICOAGULANTS Status: Chronic Comment: Continue Eliquis 5mg BID (5) Hypokalemia Code(s): E87.6 - HYPOKALEMIA Status: Acute Comment: change KCL 40meq daily, repeat K+ level in am (6) Hypothyroidism Code(s): E03.9 - HYPOTHYROIDISM, UNSPECIFIED Status: Chronic Comment: Continue Levothyroxine 100mcg daily - Plan plan discussed w/ family, continue antibiotics, social services coordinator, out of bed/ ambulate Stable overall -: Continue Rocephin and Vancomycin -: Consult Gen Surgery for consideration of I&D -: WCT for local care, likely will need outpt wound clinic -: Continue KCL 40meq daily * .
[2017-10-24] MEDS: cefTRIAXone\\ROCEPHIN 2 GM in Sodium Chloride 0.9% 100 ML IVPB SCH (12:28)
[2017-10-24] MEDS ORDERED: Lidocaine 1% w/Epinephrine 1:200K 30 ML VIAL FS SCH (13:00)
[2017-10-24] MEDS ORDERED: Morphine 4 MG/ML VIAL SLOW IVP PRN (15:07)
--- NOTE | 2017-10-24 15:47 | CON ---
DATE OF CONSULTATION: 10/24/2017 CHIEF COMPLAINT: Left thigh abscess. HISTORY OF PRESENT ILLNESS: The patient is a 72-year-old, obese white female (BMI of 47). She prese nted to the hospital 3 days ago with a history of progressive swelling and pain associated with her u pper inner left thigh. She had been working outside a few days before and believe she may have susta ined some form of an insect bite to her leg, but really is not certain. When she presented, she had inflammation consistent with cellulitis, but no evidence of an abscess. She had significant leukocyt osis with a white blood cell count of 16.6. She was placed on IV antibiotics and her white count has progressively normalized down to 10.7 today. She has been afebrile during her entire hospitalizatio n except for a single fever on the day of admission of 101.1. Cultures were not obtained of the woun d because there was never any significant drainage prior to today. Dr. Pimentel, her hospitalist, has noted that as of today it began draining. She has developed an area o f cutaneous necrosis in the drainage from within the center of this. PAST MEDICAL HISTORY: 1. Atrial fibrillation. 2. Obstructive sleep apnea, on CPAP. 3. Hypothyroidism. 4. Morbid obesity. PAST SURGICAL HISTORY: 1. Left shoulder surgery. 2. Right total knee replacement. 3. Cataract surgery. 4. Cholecystectomy. 5. x3. ALLERGIES: CODEINE. CURRENT MEDICATIONS: Levothyroxine, Multaq, Eliquis. She did take a dose of Eliquis this morning. ALLERGIES: CODEINE. PERSONAL/SOCIAL HISTORY: She is and is initially present at bedside. 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 She does not smoke nor drink alcohol. Her primary care physician is Dr. Carolina Arita. REVIEW OF SYSTEMS: Otherwise, unremarkable. FAMILY HISTORY: Noncontributory. PHYSICAL EXAMINATION: VITAL SIGNS: Temperature 96.5, pulse 73, blood pressure 133/58. GENERAL: She is well-developed, well-nourished, pleasant white female resting in bed, in no acute di stress. She is alert and oriented x3. HEENT: Unremarkable. NECK: Supple without mass or tenderness. LUNGS: Clear to auscultation throughout. CARDIAC: Regular rate and rhythm without murmur. ABDOMEN: Obese but soft and nontender. EXTREMITIES: She has significant obesity on her legs. On her upper inner left leg, there is an area of obvious cutaneous necrosis measuring about 5 x 3 cm. The entire thigh is somewhat swollen and ed ematous with some peripheral cellulitic appearance. ASSESSMENT: The patient who has an obvious abscess with cutaneous necrosis in the left thigh. PLAN: Incision and drainage. Unfortunately, she is already on Eliquis, but since this is a superfic ial area, I believe I can safely proceed with incision and drainage in spite of her anticoagulation. I would recommend discontinuing her Eliquis for a few days, otherwise she may have excessive oozing and/or bleeding from the wound with dressing changes. Incision and drainage will be performed with l ocal anesthesia at bedside. I have discussed the procedure with the patient, she understands and agr ees to proceed.
--- NOTE | 2017-10-24 15:49 | OP ---
PROCEDURE IN DETAIL: Informed and written consent was obtained. Left thigh was prepped with alcohol and anesthetized circumferentially with 1% lidocaine with epinephrine. The necrotic skin was excise d. Underneath the skin was obviously necrotic and devitalized fatty tissue. There was no obvious pu rulence, but there was a cavity that extended deeply and somewhat anteriorly/laterally. I unroofed t he skin over this area as well. I gauze debrided any loose or devitalized fatty tissue. It was irri gated with peroxide and packed snugly with peroxide moistened gauze. Dry gauze dressing was placed e xternally. The patient tolerated the procedure well and there was never any significant bleeding. I will reques t Wound Care Team to evaluate the patient and place a wound VAC tomorrow. Home health [facility] t will be placed also for home health wound VAC. Cultures were obtained, but I am not optimistic these will be positive that she has been on IV antibi otics for 3 days now.
--- NOTE | 2017-10-24 17:09 | EKG ---
Test Reason : STAT Blood Pressure : / mmHG Vent. Rate : 129 BPM Atrial Rate : 280 BPM P-R Int : 000 ms QRS Dur : 086 ms QT Int : 330 ms P-R-T Axes : 000 -11 066 degrees QTc Int : 483 ms Atrial flutter with variable A-V block Low voltage QRS Inferior infarct (cited on or before 13-MAY-2015) Cannot rule out Anterior infarct (cited on or before 13-MAY-2015) Abnormal ECG When compared with ECG of 30-JUN-2017 07:56, ST no longer depressed in Inferior leads ST no longer depressed in Anterior leads Nonspecific T wave abnormality has replaced inverted T waves in Inferior leads Nonspecific T wave abnormality, improved in Anterolateral leads Confirmed by CRISTHIAN CHAPARRO, SCoby ([id number]) on 10/24/2017 5:08:44 PM Referred By: SAMANTHA Confirmed By:DR. Nadeem MORROW MD
--- NOTE | 2017-10-24 22:25 | EKG ---
Test Reason : STAT Blood Pressure : / mmHG Vent. Rate : 121 BPM Atrial Rate : 144 BPM P-R Int : 000 ms QRS Dur : 094 ms QT Int : 326 ms P-R-T Axes : 000 022 003 degrees QTc Int : 462 ms Atrial fibrillation with rapid ventricular response Low voltage QRS Nonspecific ST abnormality Abnormal ECG When compared with ECG of 21-OCT-2017 21:56, (Unconfirmed) Atrial fibrillation has replaced Atrial flutter Non-specific change in ST segment in Inferior leads Confirmed by Aaliyah SANTACRUZ ([id number]) on 10/24/2017 10:24:57 PM Referred By: SAMANTHA Confirmed By:Aaliyah SANTACRUZ
[2017-10-25] MEDS: Vancomycin HCl 1.5 GM in Sodium Chloride 0.9% 250 ML 300 ML IVPB SCH ×2 (00:14→13:30)
[2017-10-25 00:39] LABS: Vancomycin, Trough 17.9 ug/mL
[2017-10-25] MEDS: Levothyroxine Sodium 100 MCG TAB PO SCH (05:38)
[2017-10-25] MEDS: Potassium Chloride 20 MEQ TAB PO SCH (08:56)
[2017-10-25] MEDS: Dronedarone HCl 400 MG TAB PO SCH ×2 (08:57→21:05)
[2017-10-25] MEDS: Docusate 100 MG CAP PO SCH ×2 (08:58→21:05)
[2017-10-25] MEDS ORDERED: Sodium Chloride 0.9% 10 ML ONE (09:59)
--- NOTE | 2017-10-25 11:23 | PRG ---
DATE OF SERVICE: 10/25/2017 SUBJECTIVE: Ms. Willson complains of appropriate discomfort after a wound VAC was just placed on her le ft thigh wound. She is otherwise feeling well. PHYSICAL EXAMINATION: VITAL SIGNS: She is afebrile, her pulse overnight was tachycardic with a heart rate of 107, but her current heart rate is 89. Blood pressure is 163/76. EXTREMITIES: Leg is examined. There is still some edema in the thigh, but the wound VAC dressing is covering the wound and it is not examinable at this time. LABORATORY STUDIES: There are no new labs today. Initial cultures that I performed yesterday reveal ed Staphylococcus aureus. Sensitivities not obtained yet. I am not certain if this is a MRSA or not . ASSESSMENT AND PLAN: Patient with a Staphylococcal left thigh wound. This has been incised, drained and debrided yesterday. She is currently receiving IV antibiotics including vancomycin. Her Eliqui s has been held and I recommend holding this for 3-4 days to avoid bleeding within the wound. Once t here is an appropriate level of healing, then Eliquis may be continued again. At this point, I believe she is stable for discharge with a home wound VAC. The VAC has to be change d about 3 times per week. I would like to see her back in my office in 2 weeks. I think, she is saf e for discharge home on Bactrim and pain medication. So, once the home wound VAC and home health mahnaz sing has been arranged, she may be discharged whether today or tomorrow.
[2017-10-25] MEDS: cefTRIAXone\\ROCEPHIN 2 GM in Sodium Chloride 0.9% 100 ML IVPB SCH (11:59)
[2017-10-25] MEDS: Acetaminophen 325 MG TAB PO PRN (12:32)
--- NOTE | 2017-10-25 12:53 | PDOC.PN ---
- Subjective Encounter Start Date: 10/25/17 Encounter Start Time: 12:40 Subjective: f/u for LLE abscess/cellulitis s/p I&D 10/24/17 with wound vac application. -: + pain with wound vac application tx with Morphine Sulfate. No fever but -: pain left groin. - Objective MAR Reviewed: Yes Vital Signs & Weight: Vital Signs (12 hours) Temp Pulse Resp BP Pulse Ox 10/25/17 07:47 97.4 F L 89 20 163/76 H 92 L 10/25/17 03:50 98.1 F 102 H 14 136/61 92 L Weight Admit Weight 233 lb 9.6 oz Weight 248 lb I&O: 10/24/17 10/25/17 10/26/17 06:59 06:59 06:59 Intake Total 970 Output Total 800 1300 Balance 170 -1300 Result Diagrams: 10/24/17 04:49 10/24/17 04:49 Additional Labs: Microbiology 10/24/17 15:00 Leg Bacterial Culture - Preliminary Staphylococcus aureus 10/21/17 11:41 Venous blood - Right Hand Blood Culture - Preliminary Specimen has been received and culture in progress. No Growth to date. 10/21/17 11:41 Venous blood - Left Arm Blood Culture - Preliminary Specimen has been received and culture in progress. No Growth to date. Laboratory Tests 10/21/17 10/21/17 10/22/17 11:41 11:41 04:08 WBC 16.6 H Neutrophils % 79.2 H 75.8 H Potassium 3.6 EKG Reviewed by me: Yes (Tele - A-fib RVR in 140's) Phys Exam - Physical Examination Constitutional: NAD HEENT: PERRLA, moist MMs, sclera anicteric, oral pharynx no lesions Neck: no nodes, no JVD, supple, full ROM diminished in bases Respiratory: no wheezing, no rales, no rhonchi, clear to auscultation bilateral tachycardic S1, S2 Cardiovascular: no significant murmur, no rub, gallop, irregular Gastrointestinal: soft, non-tender, no distention, positive bowel sounds LLE with wound vac in place, receding erythema peripherally from central core, + TTP Musculoskeletal: pulses present Neurological: non-focal, normal sensation, moves all 4 limbs Psychiatric: normal affect, A&O x 3 Skin: normal turgor, cap refill <2 seconds Dx/Plan (1) Abscess of left lower extremity Code(s): L02.416 - CUTANEOUS ABSCESS OF LEFT LOWER LIMB Status: Acute Comment: Organized abscess with purulent drainage, s/p I&D 10/24/17, continue Vancomycin and Rocephin, wound vac application with plans for wound vac on d/c (2) Cellulitis of left lower extremity Code(s): L03.116 - CELLULITIS OF LEFT LOWER LIMB Status: Acute Comment: Mild improvement in margins, change Rocephin 2gm IV daily, continue Vancomycin 1.5gm IV daily, continue serial monitoring, continue IV abx another 24h then convert to po (3) Atrial fibrillation with RVR Code(s): I48.91 - UNSPECIFIED ATRIAL FIBRILLATION Status: Acute Comment: Continue Multaq, intermittent RVR likely due to current infectious process and pain, Cardizem 20mg IV x 1 dose now (4) Chronic anticoagulation Code(s): Z79.01 - 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 OF ANTICOAGULANTS Status: Chronic Comment: Continue Eliquis 5mg BID (5) Hypokalemia Code(s): E87.6 - HYPOKALEMIA Status: Acute Comment: Improved, KCL 40meq daily, repeat K+ level in am (6) Hypothyroidism Code(s): E03.9 - HYPOTHYROIDISM, UNSPECIFIED Status: Chronic Comment: Continue Levothyroxine 100mcg daily - Plan continue antibiotics, PT/OT, geriatric social worker, out of bed/ambulate, DVT proph w/ SCDs Cardizem 20mg IV x 1 dose now -: Continue Multaq 400mg BID -: Continue Eliquis 5mg BID -: Continue IV Rocephin and Vancomycin another 24h then convert to po -: Pain control Morphine Sulfate IV * AM lab: CBC * CM for HH with wound vac([facility])
[2017-10-25] MEDS: traMADol HCl 50 MG TAB PO PRN (17:02)
[2017-10-26] MEDS: Vancomycin HCl 1.5 GM in Sodium Chloride 0.9% 250 ML 300 ML IVPB SCH ×2 (01:05→13:57)
[2017-10-26] MEDS: Levothyroxine Sodium 100 MCG TAB PO SCH (05:11)
[2017-10-26 05:29] LABS: Eosinophils 7 % (0-10); Hemoglobin 12.1 g/dL (12.0-16.0); Lymphocytes 22 % (21-51); MDiff Complete? YES; Mean Corpuscular HGB CONC 33.9 g/dL (32.0-36.0); Mean Corpuscular Volume 88.4 fl (81.0-99.0); Mean Platelet Volume 6.8 fL (7.4-10.4); Monocytes 5 % (0-10); Neutrophil 65 % (42-75); Platelet Count 302 thou/uL (130-400); RBC Distribution Width 11.6 % (11.5-14.5); Reactive Lymphocytes 1 % (0-10); Red Blood Cell (RBC) Count 4.05 mill/uL (4.20-5.40); White Blood Cell (WBC) Count 7.9 thou/uL (4.8-10.8)
[2017-10-26] MEDS: Dronedarone HCl 400 MG TAB PO SCH (08:08)
[2017-10-26] MEDS: Docusate 100 MG CAP PO SCH (08:08)
[2017-10-26] MEDS: Potassium Chloride 20 MEQ TAB PO SCH (08:08)
--- NOTE | 2017-10-26 09:43 | PQF ---
CLINICAL DOCUMENTATION IMPROVEMENT CLARIFICATION FORM: ICD-10 Updated PLEASE DO AN ADDENDUM TO THE PROGRESS NOTE WITH ANY DOCUMENTATION UPDATES OR ADDITIONS AND CARRY THROUGH TO DC SUMMARY. THANK YOU. DATE: 10/26/17 ATTN: Dr. Santana Please exercise your independent, professional judgment in responding to the clarification form. Clinical indicators are provided on the bottom of this form for your review Please check appropriate box(es): [x ] Sepsis due to: [ ] Localized infection without sepsis [ ] Other diagnosis [ ] Unable to determine In addition, please specify: Present on Admission (POA): [ x] Yes [ ] No [ ] Unable to determine in discharge summary as well. thanks! For continuity of documentation, please document condition throughout progress notes and discharge summary. Thank You. CLINICAL INDICATORS - SIGNS / SYMPTOMS / LABS H&P: HEART RATE 69-144 RESP 22 WBC 16.6 GLUCOSE 115 ASSESSMENT: FOR TACHYCARDIA, THIS LIKELY REPRESENTS AN EARLY SEPTIC PICTURE, ESPECIALLY W/ THE ELEVATED WHITE BLOOD CELL COUNT GS CONSULT: SINGLE FEVER ON DAY OF ADMISSION OF 101.1 ABSCESS W/ CUTANEOUS NECROSIS IN THE LEFT THIGH RISKS: H&P: CELLULITIS OF THE LOWER EXTREMITY. ATRIAL FIBRILLATION. TREATMENT: H&P: FLUID RESUSCITATION IN ADDITION TO ANTIBIOTICS GS CONSULT: L THIGH ABSCESS, I&D CPOE 10/22: ROCEPHIN 2 GM IV Q 24 HR CPOE 10/23: VANCOMYCIN HCL 1.5 GM IV 0100, 1300 Thank you, Demi (This form is maintained as a part of the permanent medical record) 2015 [employer], [place]. All Rights Reserved Demi Ward RN, BSN [email or web address] Office: [phone] [facility]
[2017-10-26] MEDS: traMADol HCl 50 MG TAB PO PRN (10:40)
[2017-10-26 11:42] VITALS: BP 133/96; TEMP 98.3
[2017-10-26] MEDS: cefTRIAXone\\ROCEPHIN 2 GM in Sodium Chloride 0.9% 100 ML IVPB SCH ×2 (12:59→13:57)
--- NOTE | 2017-10-27 10:20 | PDOC.EVN ---
Event Note - Event Note Event Note: [id number] discharge summary dictated.
--- NOTE | 2017-10-27 12:39 | DIS ---
DATE OF ADMISSION: 10/22/2017 DATE OF DISCHARGE: 10/26/2017 PRIMARY CARE PHYSICIAN: Caroilna Arita M.D. ADMISSION/DISCHARGE DIAGNOSES: 1. Sepsis secondary to left thigh abscess/cellulitis. 2. Atrial fibrillation, on Eliquis. 3. Hypothyroidism. HOSPITAL COURSE: The patient is a very pleasant 72-year-old female with a history of atrial fibrilla tion, hypothyroidism, and on Eliquis who presented with cellulitis of the left lower extremity. She initially had a white count of 16.6 and was tachycardic on admission, thus meeting sepsis criteria. She was initially started on broad spectrum antibiotics of vancomycin and Rocephin. Her white count did decrease. On 10/24/2017, patient underwent an I&D with a surgery that excised the necrotic tissu e with no obvious purulence and it did have some devitalized fatty tissue. There was also a cavity t hat extended deeply and somewhat anteriorly/laterally. The patient was actually fitted with the woun d VAC. Her blood cultures peripherally were negative. However, her Gram stain grew out Staph aureus that was sensitive to Bactrim and was resistant to amoxicillin and azithromycin as well as erythromy tsering and clarithromycin. However, it was overall sensitive to the other agents. When home health was arranged with the wound VAC change 3 times a week and the patient was able to be on oral antibiotics with just Bactrim to continue for 7 more days, she was discharged in stable condition to Home Health . Patient will also follow up with Dr. Yousuf Valentine in Surgery. DISCHARGE PHYSICAL EXAMINATION: VITAL SIGNS: Temperature 96.1, pulse 138, respirations 18, blood pressure 141/83. GENERAL: Awake, alert, oriented in no acute distress. HEENT: Mucous membranes moist. HEART: Tachycardic, no murmurs, rubs or gallops. LUNGS: Clear to auscultation bilaterally. ABDOMEN: Nontender, nondistended. EXTREMITIES: Left thigh wound VAC attached. DISCHARGE MEDICATIONS: 1. Eliquis 5 mg p.o. b.i.d. 2. Amiodarone 400 mg p.o. b.i.d. 3. Synthroid 100 mcg p.o. daily. 4. Bactrim 1 tab p.o. b.i.d. x7 days. 5. Vitamin B3 and calcium supplementation. The patient also discharged with a script for tramadol 5 0 mg p.o. q. 6 h. p.r.n. for pain. DISCHARGE FOLLOWUP: Patient discharged in stable condition to home with home health with a follow up with Dr. Yousuf Valentine from General Surgery as well as her PCP, Dr. Carolina Arita.
== END 2017-10-26 15:22 | disposition home health service (06) | DRG 872 ==
LOC: ERS 10:23 → 2SW 12:44 → OBSVTOIN 10-22 10:12 → 2NO 10-22 13:58
PROVIDERS: ADMIT Internal Medicine; ATTEND Internal Medicine
PROC: 0HBLXZZ Excision of Left Lower Leg Skin, External Approach (ICD-10-PCS; principal; 2017-10-24)
PROC: 2W1MX6Z Compression of Left Lower Extremity using Pressure Dressing (ICD-10-PCS; 2017-10-25)
DX: A41.2 Sepsis due to unspecified staphylococcus (principal); L03.116 Cellulitis of left lower limb; Z68.42 Body mass index [BMI] 45.0-49.9, adult; L02.416 Cutaneous abscess of left lower limb; E66.01 Morbid (severe) obesity due to excess calories; I48.91 Unspecified atrial fibrillation; E03.9 Hypothyroidism, unspecified; G47.33 Obstructive sleep apnea (adult) (pediatric); Z96.651 Presence of right artificial knee joint; Z88.5 Allergy status to narcotic agent; Z79.899 Other long term (current) drug therapy; Z79.01 Long term (current) use of anticoagulants; E87.6 Hypokalemia
CPT/HCPCS: 36415; 80048; 80053; 80061; 80202; 82306; 83605; 84439; 84443; 85007; 85025; 85027; 87040; 87070; 87077; 87186; 87205; 93005; 93010; 96365; 96367; 96375; A4216; J0696; J2270; J3370; J7050

== ENCOUNTER 2018-04-17 10:47 | Outpatient (CLI) | payer MEDICARE, OTHER | END 2018-04-17 10:48 | disposition home or self-care (01) | LOC: BICMAMMO 10:47 | PROVIDERS: ATTEND Internal Medicine | DX: Z12.31 Encounter for screening mammogram for malignant neoplasm of breast (principal) | CPT/HCPCS: 77063; 77067 ==

== ENCOUNTER 2019-04-18 08:02 | Outpatient (CLI) | payer MEDICARE, OTHER ==
--- NOTE | 2019-04-18 08:57 | MMO ---
Bilateral MAMMO Bilat Screen [facility]TON[facility]. CLINICAL HISTORY: Patient is 73 years old and is seen for screening. The patient has no family history of breast cancer. The patient has no personal history of cancer. VIEWS: The views performed were: bilateral craniocaudal; bilateral craniocaudal with tomosynthesis; and bilateral mediolateral oblique with tomosynthesis. FILMS COMPARED: The present examination has been compared to prior imaging studies performed at [facility] on 04/05/2014, 05/06/2015, 04/12/2017 and 04/17/2018. This study has been interpreted with the assistance of computer-aided detection. MAMMOGRAM FINDINGS: The breasts are almost entirely fat. There are no suspicious masses, suspicious calcifications, or new areas of architectural distortion. IMPRESSION: THERE IS NO MAMMOGRAPHIC EVIDENCE OF MALIGNANCY. A ROUTINE FOLLOW-UP MAMMOGRAM IN 1 YEAR IS RECOMMENDED. THE RESULTS OF THIS EXAM WERE SENT TO THE PATIENT. ACR BI-RADS Category 1 - Negative MAMMOGRAPHY NOTE: 1. A negative mammogram report should not delay a biopsy if a dominant of clinically suspicious mass is present. 2. Approximately 10% to 15% of breast cancers are not detected by mammography. 3. Adenosis and dense breasts may obscure an underlying neoplasm. Reported by: MICHAEL ESCOBAR MD Electonically Signed: [id number]
== END 2019-04-18 08:03 | disposition home or self-care (01) ==
LOC: BICMAMMO 08:02
PROVIDERS: ATTEND Internal Medicine
DX: Z12.31 Encounter for screening mammogram for malignant neoplasm of breast (principal)
CPT/HCPCS: 77063; 77067

== ENCOUNTER 2020-04-16 07:06 | Outpatient (CLI) | payer MEDICARE, OTHER ==
[2020-04-16 12:03] LABS: Hemoglobin 13.8 g/dL (12.0-16.0); Mean Corpuscular HGB CONC 32.6 G/DL (32.0-36.0); Mean Corpuscular Hemoglobin 29.1 PG (27.0-33.0); Mean Corpuscular Volume 89.1 fl (80.0-100.0); Mean Platelet Volume 10.1 fl (7.4-10.4); Platelet Count 263 10x3/uL (130-400); RBC Distribution Width 12.4 % (11.5-14.5); Red Blood Cell (RBC) Count 4.75 10x6/uL (3.90-5.20); White Blood Cell (WBC) Count 7.6 10x3/uL (4.5-11.0)
[2020-04-16 12:15] LABS: Anion Gap 12 mmol/L (10-20); BUN (Urea Nitrogen) 13 mg/dL (9.8-20.1); Calc. Creatinine Clearance 0 mL/min (70-130); Calcium 8.7 mg/dL (7.8-10.44); Carbon Dioxide 26 mmol/L (23-31); Chloride 108 mmol/L (98-107); Estimated GFR-MDRD 62; Glucose 98 mg/dL (83-110); Potassium 4.2 mmol/L (3.5-5.1); Sodium 142 mmol/L (136-145)
[2020-04-16 12:23] LABS: PTT 32.8 sec (22.0-33.0); Prothrombin Time 10.7 sec (9.5-12.1)
[2020-04-16 18:57] LABS: SARS-CoV-2 MS2 Positive; SARS-CoV-2 N Gene Negative; SARS-CoV-2 S Gene Negative; SARS-CoV-2 by NAA Not Detected (NotDetected); SARS-CoV-2 orf1ab Negative
--- NOTE | 2020-04-18 09:39 | EKG ---
Test Reason : Blood Pressure : / mmHG Vent. Rate : 064 BPM Atrial Rate : 064 BPM P-R Int : 116 ms QRS Dur : 088 ms QT Int : 434 ms P-R-T Axes : 021 -21 000 degrees QTc Int : 447 ms Normal sinus rhythm Low voltage QRS Possible Anterolateral infarct , age undetermined Abnormal ECG No previous ECGs available Confirmed by BONY VILLANUEVA MD ([id number]) on 04/18/2020 9:39:16 AM Referred By: IVIS Confirmed By:BONY VILLANUEVA MD
== END 2020-04-16 07:07 | disposition home or self-care (01) ==
LOC: LABBT 07:06
PROVIDERS: ATTEND Internal Medicine Cardiovascular Disease
DX: Z01.818 Encounter for other preprocedural examination (principal); Z20.828 Contact with and (suspected) exposure to other viral communicable diseases; I48.91 Unspecified atrial fibrillation
CPT/HCPCS: 80048; 85027; 85610; 85730; 93005; U0003; 87635; 93010

== ENCOUNTER 2020-04-21 05:57 | Observation (INO) | payer MEDICARE, OTHER ==
[2020-04-18 10:44] VITALS: BMI 44.4
[2020-04-21] MEDS ORDERED: Fentanyl 100 MCG/2 ML VIAL ONE ×2 (06:50→11:47)
[2020-04-21] MEDS ORDERED: Heparin 10,000 UNITS/ 10 ML VIAL ONE ×3 (07:52→08:31)
[2020-04-21] MEDS ORDERED: Heparin 25,000 units/D5W 500 ML ONE (08:19)
[2020-04-21] MEDS ORDERED: Isoproterenol 0.2 MG/1 ML AMP ONE (08:19)
[2020-04-21] MEDS ORDERED: Protamine Sulfate 50 MG/5 ML VIAL ONE (10:55)
[2020-04-21] MEDS ORDERED: SUGAMMADEX SODIUM 200 MG/2 ML VIAL ONE (10:55)
[2020-04-21] MEDS ORDERED: Lidocaine 1% w/Epinephrine 1:100K 20 ML VIAL ONE (11:04)
[2020-04-21] MEDS ORDERED: Dexamethasone 20 MG/5 ML VIAL ONE (11:08)
[2020-04-21] MEDS ORDERED: Ondansetron PF 4 MG/2 ML Vial ONE (11:08)
[2020-04-21] MEDS ORDERED: Rocuronium Bromide 10 MG/ML (10ML VIAL) ONE (11:08)
[2020-04-21] MEDS ORDERED: PROPOFOL 200 MG/20 ML VIAL ONE (11:08)
[2020-04-21] MEDS ORDERED: Lidocaine 1% PF 5 ML VIAL ONE (11:08)
[2020-04-21] MEDS ORDERED: Ketorolac Tromethamine 30 MG/ML VIAL ONE (11:41)
--- NOTE | 2020-04-21 13:13 | OP ---
DATE OF PROCEDURE: 04/21/2020 PROCEDURE PERFORMED: Electrophysiology study and radiofrequency ablation. REASON FOR PROCEDURE: Ms. Willson is a 74-year-old woman with history of preserved LVEF, frequent atrial fibrillation with suboptimal control with Multaq. She is here for EP study and ablation. She has been well anticoagulated without fail with apixaban. DESCRIPTION OF PROCEDURE: The patient received general anesthesia by Anesthesia specialist. Left and right femoral veins were prepped, draped, and accessed with a multipurpose needle. On the left side, an 11-Serbian sheath was used to advance the intracardiac echocardiogram probe to the right atrium, where it was used to monitor the transeptal puncture, the catheter manipulation, and the pericardial space throughout the procedure. Also from the left femoral vein, a DecaNav catheter was advanced to the right atrium and 3D map of the right atrium, His bundle, and CS positions were obtained. From the right femoral venous access, two SL1 sheaths were used to perform a transseptal puncture with the help of a powered Celina needle under ultrasound and fluoroscopic monitoring. Prior to the puncture, IV heparin was administered in a bolus and a drip fashion and it was adjusted throughout the case to keep ACT over 350. Following that, a ThermoCool SFST catheter and a 20-pole Lasso catheter were advanced to left atrium. 3D map for left atrium was performed with findings of 4 separate pulmonary veins identified. Also, mild to moderate left atrial enlargement seen. Standard pulmonary venous isolation was performed with special attention paid to the esophageal temperature throughout the posterior wall botello, any heating was met with extra irrigation. The posterior wall was also isolated using a roof and an inferoposterior line. The ablation catheter was advanced to the LV and LV pacing was performed and Wenckebach was obtained. Accessory pathway was ruled out. Following that, Isuprel was administered and any reconnection was re-ablated. During the case, the patient was spontaneously converted to atrial fibrillation and an occasional atypical atrial flutter, which spontaneously terminated during ablation. No cardioversion was necessary. Total of 30 minutes and 44 seconds ablation delivered at 40 [place]. Total number of ablation lesions were 121. The catheter was removed from left atrium. Long sheaths were exchanged for short sheaths. Intracardiac echo proved no change in the pericardial space, and also on fluoroscopy, pericardial silhouette did not change. All femoral venous access sites were closed with Vascade closure after protamine was used to reverse IV heparin effect. NUMERICAL FINDINGS: Baseline rhythm was sinus rhythm, cycle length 825 milliseconds, MO 112 milliseconds, QRS 86 milliseconds, QT 446 milliseconds, AH 63 milliseconds, HV is 44 milliseconds. AV Wenckebach cycle length was 370 milliseconds. Retrograde Wenckebach cycle length was 360 milliseconds. AV pedrito ERP was measured at 600/320 milliseconds. Concentric retrograde VA conduction seen. No definite dual AV pedrito physiology present except for a jump prior to the block. Atrial fibrillation, atrial flutter noted through the procedure, and again, the patient converted back to sinus rhythm at the end of the case. CONCLUSION: 1. Successful isolation of all 4 pulmonary veins as well as the posterior wall. 2. Normal AV pedrito and His-Purkinje function pre and post procedure. 3. No evidence of accessory pathway or dual AV pedrito physiology noted. PLAN: 1. Resume oral anticoagulation and hold Multaq unless recurrent atrial fibrillation is seen. 2. Insert LINQ recorder for monitoring of recurrent atrial fibrillation. Job ID: [id number]
--- NOTE | 2020-04-21 13:21 | OP ---
DATE OF PROCEDURE: 04/21/2020 PROCEDURE PERFORMED: Loop recorder insertion. REASON FOR PROCEDURE: Ms. Willson has frequent atrial fibrillation episodes palpitation, near syncopal spell, and history of antiarrhythmic medication use. She is here for pulmonary venous isolation procedure, also LINQ recorder implantation is planned for further monitoring of her arrhythmia episode, has a history of near syncope. DESCRIPTION OF PROCEDURE: The patient is still under general anesthesia from prior procedure. The left fourth intercostal space anesthestized using subcutaneous lidocaine and with the [employer] standard tool kit, a LINQ recorder was inserted. The wound was closed with Dermabond. CONCLUSION: Successful LINQ recorder insertion. PLAN: Routine followup. Job ID: [id number]
[2020-04-21] MEDS ORDERED: Furosemide 40 MG/4 ML VIAL ONE (14:46)
[2020-04-21] MEDS ORDERED: Potassium Chloride 20 MEQ TAB PO SCH (15:00)
[2020-04-21] MEDS ORDERED: Ketorolac Tromethamine 30 MG/ML VIAL IVP PRN (17:27)
[2020-04-21] MEDS: Sucralfate 1 GM/10 ML UDCUP PO SCH ×2 (18:41→23:15)
[2020-04-21] MEDS: Apixaban 5 MG TAB PO SCH (20:16)
[2020-04-21] MEDS ORDERED: Ezetimibe 10 MG TAB PO SCH (21:00)
[2020-04-22] MEDS: Sucralfate 1 GM/10 ML UDCUP PO SCH (05:09)
[2020-04-22] MEDS ORDERED: Levothyroxine Sodium 100 MCG TAB PO SCH (06:00)
[2020-04-22 08:52] VITALS: BP 144/84; TEMP 97.6
[2020-04-22] MEDS: Apixaban 5 MG TAB PO SCH (08:57)
[2020-04-22] MEDS ORDERED: GLUCOSAMINE PO SCH (09:00)
[2020-04-22] MEDS ORDERED: Multivit, Therapeutic 1 TAB PO SCH (09:00)
[2020-04-22] MEDS ORDERED: Magnesium Oxide 250 MG TAB PO SCH (09:00)
[2020-04-22] MEDS ORDERED: Fish Oil 1,000 MG CAP PO SCH (09:00)
[2020-04-22] MEDS ORDERED: Potassium Chloride 10 MEQ TAB PO SCH (09:00)
[2020-04-22] MEDS ORDERED: CHONDROITIN A PO SCH (09:00)
[2020-04-22] MEDS ORDERED: MSM PO SCH (09:00)
--- NOTE | 2020-04-22 11:17 | DIS ---
DATE OF ADMISSION: 04/21/2020 DATE OF DISCHARGE: 04/22/2020 DIAGNOSIS: Atrial fibrillation, persistent. PROCEDURES PERFORMED: Include: 1. Electrophysiology study and radiofrequency ablation. 2. LINQ loop recorder implant. Total of 30 minutes 44 seconds RF energy lesions delivered. Successful isolation of all 4 pulmonary veins as well as posterior wall. Normal AV pedrito and His-Purkinje function pre and post procedure. No evidence of accessory pathway or dual AV pedrito physiology noted. A loop recorder implant post ablation for monitoring of recurrent atrial arrhythmia. HISTORY OF PRESENT ILLNESS: Ms. Willson is a 74-year-old woman with a history of preserved LVEF, frequent atrial fibrillation, suboptimally controlled with Multaq, who opted for elective EP study and ablation. She had been appropriately anticoagulated without fail on apixaban prior to her procedure. Her ablation was performed as detailed above and a loop recorder was implanted at the end of the procedure for continued atrial arrhythmia monitoring. She has done well post ablation and overnight maintaining sinus rhythm and no early recurrence of atrial fibrillation noted. She feels well, voicing no concerns or complaints and is eager to discharge home. SUBJECTIVE: No heart racing, palpitations, chest pain, pressure, syncope, near syncope, bleeding, stroke, stroke-like symptoms, gait instability, nausea, vomiting, diarrhea, or bleeding at groin sites are noted. She feels well. OBJECTIVE: VITAL SIGNS: Temperature 97.6, afebrile, pulse 71, respirations 12, oxygen 97% on room air, blood pressure 144/80. GENERAL: The patient is alert, oriented. Speech is clear. She is in no apparent distress. NECK: No jugular venous distention. Neck is supple. Trachea is midline. LUNGS: Clear to auscultation with respirations even and unlabored. HEART: Heart rate is irregularly irregular with crisp S1 and S2. ABDOMEN: Obese, nontender without palpable masses. Hepatojugular reflux is negative. EXTREMITIES: Warm and dry to touch. Well perfused without clubbing, cyanosis, or edema. NEUROLOGIC: Grossly intact. Bilateral groin sites are stable with no evidence of hematoma or bleeding complications post access with Vascade closure at the end of the procedure. Gait was not assessed, but she has reportedly been ambulating throughout her room without difficulty at her baseline status. DISCHARGE INSTRUCTIONS: 1. Continue medications as prescribed. 2. Follow up in 2 weeks for a wound check for the loop recorder in 6 weeks for post ablation followup. 3. Do not resume Multaq unless early recurrence of arrhythmias are seen or symptomatic palpitations. DISCHARGE MEDICATIONS: 1. Resuming home medications of turmeric supplement. 2. Potassium supplement. 3. Multivitamin. 4. Magnesium oxide supplement. 5. Levothyroxine 100 mcg daily. 6. Krill oil daily. 7. Glucosamine chondroitin daily. 8. 10 mg at bedtime. 9. Eliquis 5 mg b.i.d. 10. Cardizem CD 120 mg daily. New prescriptions submitted electronically. 1. Carafate 1 g p.o. q.6 hours x2 weeks. 2. Klor-Con 10 mEq p.o. daily p.r.n. to be taken with Lasix. 3. Protonix 40 mg daily x30 days and Lasix 40 mg p.o. p.r.n. shortness of breath, weight gain, edema, or fluid retention symptoms as needed. CONDITION AT DISCHARGE: Stable. Job ID: [id number] [facility]
== END 2020-04-22 10:50 | disposition home or self-care (01) ==
LOC: CCL 05:57 → 2NO 07:05
PROVIDERS: ADMIT Internal Medicine Cardiovascular Disease; ATTEND Internal Medicine Cardiovascular Disease
PROC: 4A023FZ Measurement of Cardiac Rhythm, Percutaneous Approach (ICD-10-PCS; principal; 2020-04-21)
PROC: 4A0234Z Measurement of Cardiac Electrical Activity, Percutaneous Approach (ICD-10-PCS; 2020-04-21)
PROC: 02583ZZ Destruction of Conduction Mechanism, Percutaneous Approach (ICD-10-PCS; 2020-04-21)
PROC: 02K83ZZ Map Conduction Mechanism, Percutaneous Approach (ICD-10-PCS; 2020-04-21)
PROC: 0JH602Z Insertion of Monitoring Device into Chest Subcutaneous Tissue and Fascia, Open Approach (ICD-10-PCS; 2020-04-21)
DX: I48.19 Other persistent atrial fibrillation (principal); I83.93 Asymptomatic varicose veins of bilateral lower extremities; E78.5 Hyperlipidemia, unspecified; I10 Essential (primary) hypertension; E03.9 Hypothyroidism, unspecified; E66.01 Morbid (severe) obesity due to excess calories; Z68.41 Body mass index [BMI] 40.0-44.9, adult; Z79.01 Long term (current) use of anticoagulants; Z79.899 Other long term (current) drug therapy; Z88.5 Allergy status to narcotic agent
CPT/HCPCS: 33285; 76942; 85347 ×2; 93005; 93613; 93622; 93623; 93656; 93657; 93662; C1732 ×3; C1759; C1764; 93010; G0378; J1100; J1644; J1885; J1940; J2405; J2704; J2720; J3010

== ENCOUNTER 2020-10-17 09:48 | Inpatient (IN) | payer MEDICARE, OTHER ==
[2020-10-17 10:23] LABS: #Basophils 0.1 thou/uL (0.0-0.2); #Eosinphils 0.2 thou/uL (0.0-0.7); #Lymphocytes 2.6 thou/uL (1.20-3.40); #Monocytes 0.6 thou/uL (0.11-0.59); #Neutrophils 4.7 thou/uL (1.40-6.50); %Basophils 0.7 % (0.0-1.0); %Eosinophils 2.5 % (0.0-10.0); %Lymphocytes 31.6 % (21.0-51.0); %Monocytes 7.3 % (0.0-10.0); %Neutrophils 57.9 % (42.0-75.0); Hemoglobin 15.4 g/dL (12.0-16.0); Mean Corpuscular HGB CONC 33.3 g/dL (32.0-36.0); Mean Corpuscular Hemoglobin 29.3 pg (27.0-31.0); Mean Corpuscular Volume 87.8 fL (78.0-98.0); Mean Platelet Volume 7.7 fL (7.4-10.4); Platelet Count 250 thou/uL (130-400); RBC Distribution Width 11.4 % (11.5-14.5); Red Blood Cell (RBC) Count 5.26 mill/uL (4.20-5.40); White Blood Cell (WBC) Count 8.1 thou/uL (4.8-10.8)
[2020-10-17 10:38] LABS: ALT (SGPT) 25 U/L (8-55); AST (SGOT) 20 U/L (5-34); Albumin 4.1 g/dL (3.4-4.8); Alkaline Phosphatase 124 U/L (40-110); Anion Gap 14 mmol/L (10-20); BUN (Urea Nitrogen) 12 mg/dL (9.8-20.1); Bilirubin, Total 0.4 mg/dL (0.2-1.2); Calc. Creatinine Clearance 0 mL/min (70-130); Calcium 9.9 mg/dL (7.8-10.44); Carbon Dioxide 26 mmol/L (23-31); Chloride 107 mmol/L (98-107); Globulin 2.9 g/dL (2.4-3.5); Glucose 100 mg/dL (83-110); Potassium 3.7 mmol/L (3.5-5.1); Sodium 143 mmol/L (136-145)
[2020-10-17] MEDS ORDERED: Metoprolol Tartrate 25 MG TAB ONE (13:12)
[2020-10-17] MEDS ORDERED: Metoprolol Tartrate 5 MG/5 ML VIAL ONE (13:13)
[2020-10-17] MEDS ORDERED: PROPOFOL 20 ML ONE (14:36)
[2020-10-17 20:40] VITALS: BMI 41.1
[2020-10-17] MEDS ORDERED: Apixaban 5 MG TAB PO SCH (21:00)
[2020-10-18 00:45] LABS: SARS-CoV-2 PCR by NAA Not Detected (NotDetected)
[2020-10-18] MEDS: Levothyroxine Sodium 100 MCG TAB PO SCH (05:21)
[2020-10-18 07:37] LABS: Hemoglobin 12.6 g/dL (12.0-16.0); Platelet Count 218 thou/uL (130-400)
[2020-10-18] MEDS ORDERED: Apixaban 5 MG TAB PO SCH (09:00)
[2020-10-18] MEDS: Apixaban 5 MG TAB PO SCH ×2 (09:06→21:49)
[2020-10-18] MEDS: Ezetimibe 10 MG TAB PO SCH (09:06)
[2020-10-18] MEDS ORDERED: Loperamide HCl 1 MG/7.5 ML UDCUP PO PRN (13:41)
[2020-10-18] MEDS ORDERED: ALPRAZolam 0.25 MG TAB PO PRN (13:41)
[2020-10-19 04:20] LABS: #Eosinphils 0.3 thou/uL (0.0-0.7); #Lymphocytes 2.6 thou/uL (1.20-3.40); #Monocytes 0.7 thou/uL (0.11-0.59); #Neutrophils 4.5 thou/uL (1.40-6.50); %Basophils 0.5 % (0.0-1.0); %Eosinophils 3.3 % (0.0-10.0); %Lymphocytes 32.2 % (21.0-51.0); %Monocytes 8.7 % (0.0-10.0); %Neutrophils 55.4 % (42.0-75.0); Hemoglobin 12.7 g/dL (12.0-16.0); Mean Corpuscular HGB CONC 32.9 g/dL (32.0-36.0); Mean Corpuscular Hemoglobin 28.7 pg (27.0-31.0); Mean Corpuscular Volume 87.2 fL (78.0-98.0); Mean Platelet Volume 7.8 fL (7.4-10.4); Platelet Count 197 thou/uL (130-400); RBC Distribution Width 11.4 % (11.5-14.5); Red Blood Cell (RBC) Count 4.44 mill/uL (4.20-5.40); White Blood Cell (WBC) Count 8.1 thou/uL (4.8-10.8)
[2020-10-19 04:31] LABS: Anion Gap 12 mmol/L (10-20); BUN (Urea Nitrogen) 9 mg/dL (9.8-20.1); Calc. Creatinine Clearance 106 mL/min (70-130); Calcium 8.8 mg/dL (7.8-10.44); Carbon Dioxide 19 mmol/L (23-31); Chloride 113 mmol/L (98-107); Glucose 91 mg/dL (83-110); Magnesium 1.8 mg/dL (1.6-2.6); Potassium 3.9 mmol/L (3.5-5.1); Sodium 140 mmol/L (136-145)
[2020-10-19] MEDS: Levothyroxine Sodium 100 MCG TAB PO SCH (06:24)
[2020-10-19] MEDS: Ezetimibe 10 MG TAB PO SCH (09:11)
[2020-10-19] MEDS: Apixaban 5 MG TAB PO SCH ×2 (09:11→20:27)
[2020-10-20 04:26] LABS: #Basophils 0.1 thou/uL (0.0-0.2); #Eosinphils 0.3 thou/uL (0.0-0.7); #Lymphocytes 2.8 thou/uL (1.20-3.40); #Monocytes 0.7 thou/uL (0.11-0.59); #Neutrophils 5.1 thou/uL (1.40-6.50); %Basophils 0.6 % (0.0-1.0); %Eosinophils 3.3 % (0.0-10.0); %Lymphocytes 31.4 % (21.0-51.0); %Monocytes 7.6 % (0.0-10.0); %Neutrophils 57.2 % (42.0-75.0); Hemoglobin 12.6 g/dL (12.0-16.0); Mean Corpuscular HGB CONC 35.1 g/dL (32.0-36.0); Mean Corpuscular Hemoglobin 30.6 pg (27.0-31.0); Mean Corpuscular Volume 87.1 fL (78.0-98.0); Mean Platelet Volume 7.7 fL (7.4-10.4); Platelet Count 202 thou/uL (130-400); RBC Distribution Width 11.2 % (11.5-14.5); Red Blood Cell (RBC) Count 4.13 mill/uL (4.20-5.40); White Blood Cell (WBC) Count 8.9 thou/uL (4.8-10.8)
[2020-10-20 04:47] LABS: Anion Gap 11 mmol/L (10-20); BUN (Urea Nitrogen) 12 mg/dL (9.8-20.1); Calc. Creatinine Clearance 97 mL/min (70-130); Calcium 8.9 mg/dL (7.8-10.44); Carbon Dioxide 27 mmol/L (23-31); Chloride 109 mmol/L (98-107); Glucose 93 mg/dL (83-110); Magnesium 1.9 mg/dL (1.6-2.6); Potassium 3.6 mmol/L (3.5-5.1); Sodium 143 mmol/L (136-145)
[2020-10-20] MEDS: Levothyroxine Sodium 100 MCG TAB PO SCH (06:34)
[2020-10-20] MEDS ORDERED: Isoproterenol 0.2 MG/1 ML AMP ONE (06:44)
[2020-10-20] MEDS ORDERED: Heparin 10,000 UNITS/ 10 ML VIAL ONE ×3 (06:44→11:37)
[2020-10-20] MEDS ORDERED: Fentanyl 100 MCG/2 ML VIAL ONE (06:52)
[2020-10-20] MEDS ORDERED: Promethazine HCl 25 MG/ML VIAL SLOW IVP PRN (07:24)
[2020-10-20] MEDS ORDERED: Ondansetron HCl/PF 4 MG/2 ML Vial IVP PRN (07:24)
[2020-10-20] MEDS ORDERED: Promethazine HCl 25 MG/ML VIAL IM PRN (07:24)
[2020-10-20] MEDS ORDERED: PROPOFOL 200 MG/20 ML VIAL ONE (07:48)
[2020-10-20] MEDS ORDERED: Dexamethasone 20 MG/5 ML VIAL ONE (07:48)
[2020-10-20] MEDS ORDERED: PHENYLEPHRINE-NS 100 MCG/ML 10 ML SYRINGE ONE (07:48)
[2020-10-20] MEDS ORDERED: Glycopyrrolate 0.2 MG/ML 5 ML SYRINGE ONE (07:48)
[2020-10-20] MEDS ORDERED: Rocuronium Bromide 10 MG/ML (10ML VIAL) ONE (07:48)
[2020-10-20] MEDS ORDERED: Calcium Chloride 1 GM/10 ML Abboject SYRINGE ONE (07:48)
[2020-10-20] MEDS ORDERED: Lidocaine 1% PF 5 ML VIAL ONE (07:48)
[2020-10-20] MEDS ORDERED: ePHEDrine Sulfate 50 MG/10 ML VIAL ONE (07:48)
[2020-10-20] MEDS ORDERED: Heparin 25,000 units/D5W 500 ML ONE (08:27)
[2020-10-20] MEDS ORDERED: Ketorolac Tromethamine 30 MG/ML VIAL IVP PRN (12:21)
[2020-10-20] MEDS: Ezetimibe 10 MG TAB PO SCH (13:44)
[2020-10-20] MEDS: Sucralfate 1 GM/10 ML UDCUP PO SCH ×2 (17:37→23:33)
[2020-10-20] MEDS: Apixaban 5 MG TAB PO SCH (19:57)
[2020-10-21 04:46] LABS: #Lymphocytes 1.4 thou/uL (1.20-3.40); #Monocytes 0.7 thou/uL (0.11-0.59); #Neutrophils 8.1 thou/uL (1.40-6.50); %Basophils 0.5 % (0.0-1.0); %Eosinophils 0.3 % (0.0-10.0); %Lymphocytes 13.9 % (21.0-51.0); %Monocytes 6.9 % (0.0-10.0); %Neutrophils 78.3 % (42.0-75.0); Hemoglobin 11.3 g/dL (12.0-16.0); Mean Corpuscular HGB CONC 33.5 g/dL (32.0-36.0); Mean Corpuscular Hemoglobin 29.2 pg (27.0-31.0); Mean Corpuscular Volume 87.1 fL (78.0-98.0); Mean Platelet Volume 7.6 fL (7.4-10.4); Platelet Count 203 thou/uL (130-400); RBC Distribution Width 11.4 % (11.5-14.5); Red Blood Cell (RBC) Count 3.87 mill/uL (4.20-5.40); White Blood Cell (WBC) Count 10.4 thou/uL (4.8-10.8)
[2020-10-21 05:21] LABS: Anion Gap 12 mmol/L (10-20); BUN (Urea Nitrogen) 9 mg/dL (9.8-20.1); Calc. Creatinine Clearance 106 mL/min (70-130); Calcium 8.8 mg/dL (7.8-10.44); Carbon Dioxide 21 mmol/L (23-31); Chloride 112 mmol/L (98-107); Glucose 120 mg/dL (83-110); Magnesium 1.8 mg/dL (1.6-2.6); Potassium 3.8 mmol/L (3.5-5.1); Sodium 141 mmol/L (136-145)
[2020-10-21] MEDS: Levothyroxine Sodium 100 MCG TAB PO SCH (05:23)
[2020-10-21] MEDS: Sucralfate 1 GM/10 ML UDCUP PO SCH (05:23)
[2020-10-21 08:14] VITALS: BP 137/63; TEMP 98
[2020-10-21] MEDS: Ezetimibe 10 MG TAB PO SCH (08:15)
[2020-10-21] MEDS: Apixaban 5 MG TAB PO SCH (08:15)
[2020-10-21] MEDS ORDERED: Magnesium 2 GM/50 ML 2 GM in Premix Bag 1 BAG IVPB SCH (08:30)
[2020-10-21] MEDS ORDERED: Potassium Chloride 20 MEQ TAB PO SCH (09:45)
== END 2020-10-21 10:52 | disposition home or self-care (01) | DRG 274 ==
LOC: ERS 09:48 → ERHOLD 15:10 → 2NO 19:12
PROVIDERS: ADMIT Internal Medicine; ATTEND Internal Medicine
PROC: 5A2204Z Restoration of Cardiac Rhythm, Single (ICD-10-PCS; principal; 2020-10-17)
PROC: 02583ZZ Destruction of Conduction Mechanism, Percutaneous Approach (ICD-10-PCS; 2020-10-20)
PROC: 02K83ZZ Map Conduction Mechanism, Percutaneous Approach (ICD-10-PCS; 2020-10-20)
PROC: 4A023FZ Measurement of Cardiac Rhythm, Percutaneous Approach (ICD-10-PCS; 2020-10-20)
PROC: 4A0234Z Measurement of Cardiac Electrical Activity, Percutaneous Approach (ICD-10-PCS; 2020-10-20)
DX: I48.4 Atypical atrial flutter (principal); Z68.41 Body mass index [BMI] 40.0-44.9, adult; I47.1 Supraventricular tachycardia; I49.5 Sick sinus syndrome; E03.9 Hypothyroidism, unspecified; G47.33 Obstructive sleep apnea (adult) (pediatric); Z96.651 Presence of right artificial knee joint; F41.9 Anxiety disorder, unspecified; R19.7 Diarrhea, unspecified; E78.5 Hyperlipidemia, unspecified; I48.0 Paroxysmal atrial fibrillation; E66.01 Morbid (severe) obesity due to excess calories; R74.8 Abnormal levels of other serum enzymes; R79.89 Other specified abnormal findings of blood chemistry; M19.90 Unspecified osteoarthritis, unspecified site; I87.2 Venous insufficiency (chronic) (peripheral); I95.9 Hypotension, unspecified; D53.9 Nutritional anemia, unspecified; I12.9 Hypertensive chronic kidney disease with stage 1 through stage 4 chronic kidney disease, or unspecified chronic kidney disease; D63.1 Anemia in chronic kidney disease; N18.2 Chronic kidney disease, stage 2 (mild); E87.6 Hypokalemia; E83.42 Hypomagnesemia; Z88.5 Allergy status to narcotic agent; Z90.710 Acquired absence of both cervix and uterus; Z98.42 Cataract extraction status, left eye; Z98.41 Cataract extraction status, right eye; Z99.89 Dependence on other enabling machines and devices; Z79.01 Long term (current) use of anticoagulants; Z82.49 Family history of ischemic heart disease and other diseases of the circulatory system; Z90.49 Acquired absence of other specified parts of digestive tract
CPT/HCPCS: 36415; 71045; 76942; 80048; 80053; 82565; 83735; 83880; 84439; 84443; 84484; 85014; 85018; 85025; 85049; 85347; 85379; 87635; 92960; 93005; 93010; 93306; 93613; 93623; 93655; 93656; 93662; 96374; 96375; 99152; 99153; C1730; C1732; C1759; C1884; J1100; J1644; J2704; J3010; J3475; U0003; U0005

== ENCOUNTER 2021-03-03 12:27 | Outpatient (CLI) | payer MEDICARE, OTHER | END 2021-03-03 12:28 | disposition home or self-care (01) | LOC: BICMAMMO 12:27 | PROVIDERS: ATTEND Internal Medicine | DX: Z12.31 Encounter for screening mammogram for malignant neoplasm of breast (principal); Z13.820 Encounter for screening for osteoporosis; R92.1 Mammographic calcification found on diagnostic imaging of breast; N63.12 Unspecified lump in the right breast, upper inner quadrant; Z78.0 Asymptomatic menopausal state | CPT/HCPCS: 77063; 77067; 77080 ==

== ENCOUNTER 2021-05-15 10:00 | Observation (INO) | payer MEDICARE, OTHER ==
[2021-05-20] MEDS ORDERED: ceFAZolin 2 GM/DEX 5% 100 ML BAG ONE (06:36)
[2021-05-20] MEDS ORDERED: Sodium Chloride 0.9% 100 ML ONE (06:37)
[2021-05-20] MEDS ORDERED: Tranexamic Acid 1,000 MG/10 ML VIAL ONE (06:37)
[2021-05-20] MEDS ORDERED: Midazolam HCl 2 mg/2 ml Vial ONE (06:59)
[2021-05-20] MEDS ORDERED: Fentanyl 100 MCG/2 ML VIAL ONE ×6 (06:59→11:29)
[2021-05-20] MEDS ORDERED: Vancomycin 1.5 GRAM/300 ML BAG 1.5 GM in Premix Bag 1 BAG IVPB SCH ×2 (07:00→19:00)
[2021-05-20] MEDS ORDERED: EPINEPHrine 1 MG/ML AMP ONE (07:01)
[2021-05-20] MEDS ORDERED: Bupivacaine 0.25% 10 ML VIAL ONE (07:01)
[2021-05-20] MEDS ORDERED: Ketorolac Tromethamine 30 MG/ML VIAL ONE (07:35)
[2021-05-20] MEDS ORDERED: ePHEDrine 50 MG/ML VIAL ONE (07:35)
[2021-05-20] MEDS ORDERED: Phenylephrine 10 MG/ML VIAL ONE (07:35)
[2021-05-20] MEDS ORDERED: Bupivacaine HCl 0.5%/Epinephrine 1:200,000/PF 30 ml Vial ONE (07:35)
[2021-05-20] MEDS ORDERED: Dexamethasone 20 MG/5 ML VIAL ONE (07:35)
[2021-05-20] MEDS ORDERED: PROPOFOL 200 MG/20 ML VIAL ONE (07:35)
[2021-05-20] MEDS ORDERED: Ondansetron PF 4 MG/2 ML Vial ONE (07:35)
[2021-05-20] MEDS ORDERED: Lidocaine 1% PF 5 ML VIAL ONE (07:35)
[2021-05-20] MEDS ORDERED: Fentanyl 100 MCG/2 ML VIAL IV PRN (08:11)
[2021-05-20] MEDS ORDERED: traMADol HCl 50 MG TAB PO PRN ×4 (08:15→09:46)
[2021-05-20] MEDS ORDERED: Ondansetron PF 4 MG/2 ML Vial IVP PRN ×2 (08:15→09:46)
[2021-05-20] MEDS ORDERED: Zolpidem Tartrate 5 MG TAB PO PRN ×2 (08:15→09:46)
[2021-05-20] MEDS ORDERED: Promethazine HCl 25 MG/ML VIAL IM PRN ×3 (08:15→09:46)
[2021-05-20] MEDS ORDERED: Ropivacaine 0.2% 550 ML 550 ML NERVE BLCK SCH (08:15)
[2021-05-20] MEDS ORDERED: HYDROcodone/Acetaminophen 10/325 mg Tablet PO PRN ×3 (08:15→09:46)
[2021-05-20] MEDS ORDERED: Promethazine HCl 25 MG/ML VIAL IVPB PRN (09:18)
[2021-05-20] MEDS ORDERED: Ondansetron HCl/PF 4 MG/2 ML Vial IVP PRN (09:18)
[2021-05-20] MEDS ORDERED: Bupivacaine PF 0.5% 30 ML VIAL ONE (09:36)
[2021-05-20] MEDS ORDERED: Fentanyl 100 MCG/2 ML VIAL SLOW IVP PRN ×2 (09:46)
[2021-05-20] MEDS ORDERED: Acetaminophen 325 MG TAB PO PRN (09:46)
[2021-05-20] MEDS ORDERED: diphenhydrAMINE 25 MG CAP PO PRN (09:46)
[2021-05-20] MEDS ORDERED: Multivitamin W/ Minerals 1 TAB PO SCH (10:15)
[2021-05-20] MEDS ORDERED: Ferrous Gluconate 324 MG TAB PO SCH (10:15)
[2021-05-20] MEDS ORDERED: Senokot S 8.6-50 MG TAB PO SCH (10:15)
[2021-05-20] MEDS ORDERED: Ketorolac Tromethamine 30 MG/ML VIAL IVP SCH (12:00)
[2021-05-20] MEDS ORDERED: HYDROmorphone 0.5 MG/0.5 ML SYRINGE ONE (12:22)
[2021-05-20] MEDS: Sodium Chloride 0.9% 1,000 ML IV SCH ×2 (14:17→15:39)
[2021-05-20 14:49] VITALS: BMI 46.0
[2021-05-20] MEDS ORDERED: ceFAZolin Sodium/D5W 2 GM in Premix Bag 1 BAG IVPB SCH (15:00)
[2021-05-20] MEDS: CEFAZOLIN 2 GM in Premix Bag 1 BAG IVPB SCH ×2 (16:37→23:58)
[2021-05-20] MEDS: Ketorolac Tromethamine 30 MG/ML VIAL IVP SCH ×2 (18:52→23:59)
[2021-05-20] MEDS: Apixaban 5 MG TAB PO SCH (20:08)
[2021-05-20] MEDS: Ferrous Gluconate 324 MG TAB PO SCH (20:08)
[2021-05-20] MEDS: Senokot S 8.6-50 MG TAB PO SCH (20:08)
[2021-05-21] MEDS: Sodium Chloride 0.9% 1,000 ML IV SCH ×2 (03:34→16:51)
[2021-05-21 04:40] LABS: Hemoglobin 12.3 g/dL (12.0-16.0); Mean Corpuscular HGB CONC 33.5 g/dL (32.0-36.0); Mean Corpuscular Hemoglobin 29.8 pg (27.0-31.0); Mean Corpuscular Volume 89.1 fL (78.0-98.0); Platelet Count 191 thou/uL (130-400); RBC Distribution Width 11.3 % (11.5-14.5); Red Blood Cell (RBC) Count 4.12 mill/uL (4.20-5.40); White Blood Cell (WBC) Count 12.1 thou/uL (4.8-10.8)
[2021-05-21] MEDS: HYDROcodone/Acetaminophen 10/325 mg Tablet PO PRN ×3 (04:46→22:40)
[2021-05-21] MEDS: Ketorolac Tromethamine 30 MG/ML VIAL IVP SCH ×4 (06:03→22:42)
[2021-05-21] MEDS: Levothyroxine Sodium 88 MCG TAB PO SCH (06:03)
[2021-05-21] MEDS: Multivitamin W/ Minerals 1 TAB PO SCH (10:03)
[2021-05-21] MEDS: Apixaban 5 MG TAB PO SCH ×2 (10:04→22:37)
[2021-05-21] MEDS: Ezetimibe 10 MG TAB PO SCH (10:04)
[2021-05-21] MEDS: Ferrous Gluconate 324 MG TAB PO SCH ×2 (10:04→22:37)
[2021-05-21] MEDS: Senokot S 8.6-50 MG TAB PO SCH ×2 (10:04→22:37)
[2021-05-21] MEDS: Multivit, Therapeutic 1 TAB PO SCH (10:04)
[2021-05-22] MEDS: Sodium Chloride 0.9% 1,000 ML IV SCH (01:07)
[2021-05-22] MEDS: Ketorolac Tromethamine 30 MG/ML VIAL IVP SCH (05:43)
[2021-05-22] MEDS: Levothyroxine Sodium 88 MCG TAB PO SCH (05:44)
[2021-05-22 05:45] VITALS: TEMP 98.2
[2021-05-22 07:16] LABS: Hemoglobin 11.6 g/dL (12.0-16.0); Mean Corpuscular HGB CONC 33.9 g/dL (32.0-36.0); Mean Corpuscular Hemoglobin 30.2 pg (27.0-31.0); Mean Corpuscular Volume 88.9 fL (78.0-98.0); Mean Platelet Volume 7.2 fL (7.4-10.4); Platelet Count 183 thou/uL (130-400); RBC Distribution Width 11.4 % (11.5-14.5); Red Blood Cell (RBC) Count 3.85 mill/uL (4.20-5.40); White Blood Cell (WBC) Count 10.4 thou/uL (4.8-10.8)
[2021-05-22] MEDS: Senokot S 8.6-50 MG TAB PO SCH (07:57)
[2021-05-22] MEDS: Apixaban 5 MG TAB PO SCH (07:57)
[2021-05-22] MEDS: Ferrous Gluconate 324 MG TAB PO SCH (07:57)
[2021-05-22] MEDS: Ezetimibe 10 MG TAB PO SCH (07:57)
[2021-05-22] MEDS: Multivitamin W/ Minerals 1 TAB PO SCH (07:58)
[2021-05-22] MEDS: Multivit, Therapeutic 1 TAB PO SCH (07:58)
[2021-05-22 08:09] VITALS: BP 149/80
[2021-05-22] MEDS: HYDROcodone/Acetaminophen 10/325 mg Tablet PO PRN (08:26)
== END 2021-05-22 10:43 | disposition home or self-care (01) ==
LOC: SDC 05-20 06:23 → INTOOBSV 05-20 06:27 → SURG A 05-20 06:27 → EDSTATUS 05-20 10:00 → SJJU 05-20 13:59
PROVIDERS: ADMIT Orthopaedic Surgery; ATTEND Orthopaedic Surgery
PROC: 0SRD0J9 Replacement of Left Knee Joint with Synthetic Substitute, Cemented, Open Approach (ICD-10-PCS; principal; 2021-05-20)
PROC: 3E0T3BZ Introduction of Anesthetic Agent into Peripheral Nerves and Plexi, Percutaneous Approach (ICD-10-PCS; 2021-05-20)
DX: M17.12 Unilateral primary osteoarthritis, left knee (principal); E03.9 Hypothyroidism, unspecified; I48.91 Unspecified atrial fibrillation; E78.00 Pure hypercholesterolemia, unspecified; Z79.01 Long term (current) use of anticoagulants; Z79.899 Other long term (current) drug therapy; Z88.5 Allergy status to narcotic agent; Z96.651 Presence of right artificial knee joint
CPT/HCPCS: 27447; 64448; 73560; 85027 ×2; 96365; 96375; 96376 ×3; 97110 ×3; 97116; 97139; 97530 ×3; A4306; C1713; C1776; G0378 ×3; 36415; J0171; J0690; J1100; J1170; J1885; J2250; J2370; J2405; J2704; J2795; J3010; J3370; J3490; J7050; S0020

== ENCOUNTER 2021-05-15 10:03 | Outpatient (CLI) | payer MEDICARE, OTHER ==
[2021-05-15 11:18] LABS: #Basophils 0.1 10x3/uL (0.0-0.2); #Eosinphils 0.3 10x3/uL (0.0-0.5); #Monocytes 0.6 10x3/uL (0.0-1.1); #Neutrophils 3.9 10x3/uL (1.5-8.4); %Basophils 0.9 % (0.0-2.0); %Eosinophils 3.7 % (0.0-6.0); %Lymphocytes 31.6 % (18.0-47.0); %Monocytes 8.3 % (0.0-10.0); %Neutrophils 55.2 % (40.0-75.0); Hemoglobin 12.9 g/dL (12.0-15.5); Mean Corpuscular HGB CONC 32.3 g/dL (32.0-36.0); Mean Corpuscular Volume 86.8 fl (81.6-98.3); Mean Platelet Volume 9.6 fl (7.4-10.4); Platelet Count 233 10x3/uL (150-450); RBC Distribution Width 12.6 % (11.5-14.5); Red Blood Cell (RBC) Count 4.61 10x6/uL (3.90-5.03)
[2021-05-15 11:24] LABS: Prothrombin Time 10.9 sec (9.5-12.1)
[2021-05-15 11:27] LABS: Anion Gap 10 mmol/L (10-20); BUN (Urea Nitrogen) 13 mg/dL (9.8-20.1); Calc. Creatinine Clearance 0 mL/min (70-130); Calcium 9.1 mg/dL (7.8-10.44); Carbon Dioxide 29 mmol/L (23-31); Chloride 107 mmol/L (98-107); Glucose 99 mg/dL (83-110); Potassium 4.2 mmol/L (3.5-5.1); Sodium 142 mmol/L (136-145)
[2021-05-16 14:11] LABS: SARS-CoV-2 PCR by NAA Not Detected (NotDetected)
== END 2021-05-15 10:04 | disposition home or self-care (01) ==
LOC: LABBT 10:03
PROVIDERS: ATTEND Orthopaedic Surgery
DX: Z01.812 Encounter for preprocedural laboratory examination (principal); Z20.822 Contact with and (suspected) exposure to COVID-19
CPT/HCPCS: 80048; 85025; 85610; 87081; U0003; U0005

== ENCOUNTER 2022-04-05 10:50 | Outpatient (CLI) | payer MEDICARE | END 2022-04-05 10:51 | disposition home or self-care (01) | LOC: BICMAMMO 10:50 | PROVIDERS: ATTEND Internal Medicine | DX: Z12.31 Encounter for screening mammogram for malignant neoplasm of breast (principal) | CPT/HCPCS: 77063; 77067 ==

== ENCOUNTER 2023-05-24 08:35 | Outpatient (CLI) | payer MEDICARE, OTHER | END 2023-05-24 08:36 | disposition home or self-care (01) | LOC: BICMAMMO 08:35 | PROVIDERS: ATTEND Internal Medicine | DX: Z12.31 Encounter for screening mammogram for malignant neoplasm of breast (principal) | CPT/HCPCS: 77063; 77067 ==

== ENCOUNTER 2024-04-12 11:07 | Outpatient (CLI) | payer MEDICARE, OTHER ==
[2024-04-12 12:15] LABS: #Basophils 0.05 10x3/uL (0.0-0.2); %Basophils 0.7 % (0.0-1.0); %Eosinophils 3.8 % (0.0-10.0); %Lymphocytes 31.4 % (21.0-51.0); %Monocytes 8.2 % (0.0-10.0); %Neutrophils 55.6 % (42.0-75.0); Hematocrit 39.7 % (36.0-47.0); Hemoglobin 12.9 g/dL (12.0-16.0); Mean Corpuscular HGB CONC 32.5 g/dL (32.0-36.0); Mean Corpuscular Hemoglobin 28.2 pg (27.0-31.0); Mean Corpuscular Volume 86.9 fL (78.0-98.0); Mean Platelet Volume 9.6 fL (7.4-10.4); Platelet Count 243 10x3/uL (130-400); RBC Distribution Width 12.2 % (11.5-14.5); Red Blood Cell (RBC) Count 4.57 mill/uL (4.20-5.40)
[2024-04-12 12:28] LABS: INR-International Normal Ratio 0.9; Prothrombin Time 12.6 sec (12.0-14.7)
[2024-04-12 12:33] LABS: Anion Gap 12 mmol/L (10-20); BUN (Urea Nitrogen) 11 mg/dL (9.8-20.1); Calc. Creatinine Clearance 0 mL/min (70-130); Calcium 9.1 mg/dL (7.8-10.44); Carbon Dioxide 26 mmol/L (23-31); Chloride 105 mmol/L (98-107); Estimated GFR 87; Glucose 101 mg/dL (83-110); Potassium 3.9 mmol/L (3.5-5.1); Sodium 139 mmol/L (136-145)
== END 2024-04-12 11:08 | disposition home or self-care (01) ==
LOC: LABBT 11:07
PROVIDERS: ATTEND Orthopaedic Surgery
DX: Z01.818 Encounter for other preprocedural examination (principal); M75.121 Complete rotator cuff tear or rupture of right shoulder, not specified as traumatic
CPT/HCPCS: 80048; 85025; 85610; 87081

== ENCOUNTER 2024-04-19 05:35 | Observation (INO) | payer MEDICARE, OTHER ==
[2024-04-12 11:19] VITALS: BMI 43.9
[2024-04-19] MEDS ORDERED: Tranexamic Acid 1,000 MG/10 ML VIAL ONE (06:32)
[2024-04-19] MEDS ORDERED: CEFAZOLIN 2 GM VIAL ONE (06:33)
[2024-04-19] MEDS ORDERED: Sodium Chloride 0.9% 100 ML ONE (06:33)
[2024-04-19] MEDS ORDERED: fentaNYL 50 mcg/mL 1 mL Vial ONE ×2 (06:39→10:02)
[2024-04-19] MEDS ORDERED: Midazolam HCl 2 mg/2 ml Vial ONE (06:40)
[2024-04-19] MEDS ORDERED: Vancomycin (BATCH) 1.5 GM/300 ML BAG ONE (06:45)
[2024-04-19] MEDS ORDERED: PROPOFOL 20 ML ONE (07:20)
[2024-04-19] MEDS ORDERED: Rocuronium Bromide 10 MG/ML (10ML VIAL) ONE (07:20)
[2024-04-19] MEDS ORDERED: ePHEDrine Sulfate 50 MG/10 ML VIAL ONE (07:41)
[2024-04-19] MEDS ORDERED: PHENYLEPHRINE-NS 100 MCG/ML 10 ML SYRINGE ONE (07:43)
[2024-04-19] MEDS ORDERED: fentaNYL 50 mcg/mL 1 mL Vial SLOW IVP PRN (07:45)
[2024-04-19] MEDS ORDERED: HYDROcodone/Acetaminophen 10/325 mg Tablet PO PRN ×2 (07:45)
[2024-04-19] MEDS ORDERED: traMADol HCl 50 MG TAB PO PRN (07:45)
[2024-04-19] MEDS ORDERED: Promethazine HCl 25 MG/ML VIAL IM PRN (07:45)
[2024-04-19] MEDS ORDERED: Ropivacaine 0.2% 550 ML 550 ML NERVE BLCK SCH (07:45)
[2024-04-19] MEDS ORDERED: Zolpidem Tartrate 5 MG TAB PO PRN ×2 (07:45→11:18)
[2024-04-19] MEDS ORDERED: Ondansetron PF 4 MG/2 ML Vial IVP PRN ×2 (07:45→11:18)
[2024-04-19] MEDS ORDERED: Lidocaine 1% (PF) 30 ML VIAL ONE (08:04)
[2024-04-19] MEDS ORDERED: Ropivacaine 0.2% HCl/PF 20 ML ONE (08:04)
[2024-04-19] MEDS ORDERED: Ropivacaine 0.5% HCl/PF (150 MG/30 ML VIAL) ONE (08:04)
[2024-04-19] MEDS ORDERED: SUGAMMADEX SODIUM 200 MG/2 ML VIAL ONE (09:01)
[2024-04-19] MEDS ORDERED: Ondansetron PF 4 MG/2 ML Vial ONE (10:01)
[2024-04-19] MEDS ORDERED: diphenhydrAMINE 50 MG CAP PO PRN (11:18)
[2024-04-19] MEDS ORDERED: Acetaminophen 325 MG TAB PO PRN (11:18)
[2024-04-19] MEDS ORDERED: Bisacodyl 10 MG SUPP PR PRN (11:18)
[2024-04-19] MEDS ORDERED: Ondansetron ODT 4 MG TAB PO PRN (11:18)
[2024-04-19] MEDS ORDERED: Milk Of Magnesia 30 ML UDCUP PO PRN (11:18)
[2024-04-19] MEDS: Ketorolac Tromethamine 30 MG (1 mL) VIAL IVP SCH (11:37)
[2024-04-19] MEDS: traMADol HCl 50 MG TAB PO PRN (11:45)
[2024-04-19] MEDS: Sodium Chloride 0.9% 1,000 ML IV SCH (11:47)
[2024-04-19] MEDS: CEFAZOLIN 2 GM in Sodium Chloride 0.9% 100 ML IVPB SCH (14:30)
[2024-04-19] MEDS: Famotidine 20 MG TAB PO SCH (20:41)
[2024-04-20] MEDS: Lisinopril 10 MG TAB PO SCH (08:51)
[2024-04-20] MEDS: Ezetimibe 10 MG TAB PO SCH (08:51)
[2024-04-20] MEDS: Aspirin 81 mg Enteric Coated Tablet PO SCH (08:51)
[2024-04-20] MEDS: Multivitamin W/ Minerals 1 TAB PO SCH (08:51)
[2024-04-20] MEDS: Levothyroxine Sodium 88 MCG TAB PO SCH (11:55)
[2024-04-20 12:25] VITALS: BP 128/74; TEMP 97.9
[2024-04-21] MEDS ORDERED: Levothyroxine Sodium 88 MCG TAB PO SCH (06:00)
== END 2024-04-20 14:17 | disposition home or self-care (01) ==
LOC: SDC 05:35 → SURG A 11:10
PROVIDERS: ADMIT Orthopaedic Surgery; ATTEND Orthopaedic Surgery
PROC: 0RRJ00Z Replacement of Right Shoulder Joint with Reverse Ball and Socket Synthetic Substitute, Open Approach (ICD-10-PCS; principal; 2024-04-19)
PROC: 3E0T3BZ Introduction of Anesthetic Agent into Peripheral Nerves and Plexi, Percutaneous Approach (ICD-10-PCS; 2024-04-19)
DX: M75.121 Complete rotator cuff tear or rupture of right shoulder, not specified as traumatic (principal); S46.211A Strain of muscle, fascia and tendon of other parts of biceps, right arm, initial encounter; I10 Essential (primary) hypertension; I25.10 Atherosclerotic heart disease of native coronary artery without angina pectoris; I48.91 Unspecified atrial fibrillation; I49.8 Other specified cardiac arrhythmias; E78.5 Hyperlipidemia, unspecified; E03.9 Hypothyroidism, unspecified; Z90.710 Acquired absence of both cervix and uterus; Z90.49 Acquired absence of other specified parts of digestive tract; Z96.653 Presence of artificial knee joint, bilateral; Z87.59 Personal history of other complications of pregnancy, childbirth and the puerperium; Z88.5 Allergy status to narcotic agent; Z79.82 Long term (current) use of aspirin; Z79.899 Other long term (current) drug therapy; X58.XXXA Exposure to other specified factors, initial encounter
CPT/HCPCS: 23472; 64416; 97530; 97535; A4306; C1713 ×4; C1776 ×4; J1885 ×2; J2250; J2405; J2704; J2795 ×3; J3010; J3370; J7030

== ENCOUNTER 2024-05-25 08:37 | Outpatient (CLI) | payer MEDICARE, OTHER | END 2024-05-25 08:38 | disposition home or self-care (01) | LOC: BICMAMMO 08:37 | PROVIDERS: ATTEND Internal Medicine | DX: Z12.31 Encounter for screening mammogram for malignant neoplasm of breast (principal); Z78.0 Asymptomatic menopausal state | CPT/HCPCS: 77063; 77067; 77080 ==